=== PATIENT | female | born 1935 | race Caucasian/White ===

== ENCOUNTER 2023-11-15 01:31 | Inpatient (IN) | payer MEDICARE, OTHER ==
[2023-11-15 02:08] LABS: Basophils % (A) 0 %; Eosinophils # (A) 0.1 k/uL (0-0.7); Eosinophils % (A) 1 %; HCT 27.4 % (34.0-46.0); HGB 8.6 gm/dL (11.4-16.0); Lymphocytes # (A) 2.4 k/uL (1.0-4.8); Lymphocytes % (A) 20 %; MCH 28.5 pg (25.0-35.0); MCHC 31.3 g/dL (31.0-37.0); MCV 91.2 fL (80.0-100.0); Mean Platelet Volume 7.8; Monocytes # (A) 0.9 k/uL (0-1.0); Monocytes % (A) 8 %; Neutrophils # (A) 8.4 k/uL (1.3-7.7); Neutrophils % (A) 69 %; Platelet Count 293 k/uL (150-450); RBC 3.01 m/uL (3.80-5.40); RDW 14.1 % (11.5-15.5)
[2023-11-15 02:20] LABS: ALT 14 U/L (4-34); AST 26 U/L (14-36); African American GFR (CKD) 30 (>60 ml/min/1.73 sqM); Albumin 2.4 g/dL (3.5-5.0); Alkaline Phosphatase 91 U/L (38-126); Anion Gap 7 mmol/L; Blood Urea Nitrogen 32 mg/dL (7-17); Calcium 10.8 mg/dL (8.4-10.2); Carbon Dioxide 23 mmol/L (22-30); Chloride 104 mmol/L (98-107); Glucose 92 mg/dL (74-99); Non-African American GFR(CKD) 26 (>60 ml/min/1.73 sqM); Potassium 3.2 mmol/L (3.5-5.1); Sodium 134 mmol/L (137-145); Total Bilirubin 0.2 mg/dL (0.2-1.3); Total Protein 4.6 g/dL (6.3-8.2)
[2023-11-15 02:21] LABS: Partial Thromboplastin Time 23.7 sec (22.0-30.0); Prothrombin Time 11.4 sec (10.0-12.5)
--- NOTE | 2023-11-15 03:01 | ED ---
Female Urogenital HPI - General Source: EMS Mode of arrival: EMS Limitations: physical limitation <Herman Stewart - Last Filed: 11/15/23 03:54> <Karen Jha - Last Filed: 11/15/23 06:57> - General Chief complaint: Vaginal Bleeding Stated complaint: vaginal bleeding Time Seen by Provider: 11/15/23 01:51 - History of Present Illness Initial comments: 88-year-old female with past medical history significant multiple myeloma Presenting to the ED with a chief complaints of rectal bleeding. Also some associated abdominal pain onset today. Patient recently discharged from [facility] after having left hip surgery. Patient is on a blood thinner with history of A-fib. Patient has been unsure if she has had any changes in bowel habits however denies changes in urinary habits. No chest pain or shortness of breath. Of note history limited as patient is a vague historian. (Herman Stewart) - Related Data Allergies Allergy/AdvReac Type Severity Reaction Status Date / Time Penicillins Allergy Unknown Verified 11/15/23 01:34 Childhood Review of Systems ROS Other: All systems not noted in ROS Statement are negative. <Herman Stewart - Last Filed: 11/15/23 03:54> ROS Other: All systems not noted in ROS Statement are negative. <Karen Jha - Last Filed: 11/15/23 06:57> ROS Statement: Those systems with pertinent positive or pertinent negative responses have been documented in the HPI. Past Medical History Past Medical History: Atrial Fibrillation, Coronary Artery Disease (CAD), Cancer, Hyperlipidemia, Hypertension, Osteoarthritis (OA), Renal Disease Additional Past Medical History / Comment(s): multiple myeloma remission, chron ic back pain History of Any Multi-Drug Resistant Organisms: None Reported Past Surgical History: Orthopedic Surgery Past Psychological History: No Psychological Hx Reported Smoking Status: Never smoker Past Alcohol Use History: None Reported Past Drug Use History: None Reported <Herman Stewart - Last Filed: 11/15/23 03:54> General Exam Limitations: physical limitation General appearance: alert Eye exam: Present: normal appearance Neck exam: Present: normal inspection Respiratory exam: Present: normal lung sounds bilaterally Cardiovascular Exam: Present: regular rate GI/Abdominal exam: Present: soft (Diffuse abdominal tenderness to palpation. No rebound guarding or rigidity.) Rectal exam: Present: other (Exam chaperoned by Marylu Rn. Does have a nonthrombosed external hemorrhoid.) External exam: Present: other (Exam chaperoned by Marylu RN. No active vaginal bleeding.) Neurological exam: Present: alert, oriented X3 Skin exam: Present: warm, dry <Herman Stewart - Last Filed: 11/15/23 03:54> Course Vital Signs 11/15/23 11/15/23 11/15/23 01:34 01:45 03:50 Temperature 98.4 F Pulse Rate 58 L 64 63 Respiratory 18 18 15 Rate Blood Pressure 131/70 128/75 131/67 O2 Sat by Pulse 98 97 98 Oximetry 11/15/23 11/15/23 05:02 06:01 Temperature 98.4 F 97.7 F Pulse Rate 56 L 63 Respiratory 15 17 Rate Blood Pressure 129/70 109/65 O2 Sat by Pulse 98 98 Oximetry Medical Decision Making - Lab Data Result diagrams: 11/15/23 01:38 11/15/23 01:38 <Herman Stewart - Last Filed: 11/15/23 03:54> - Lab Data Result diagrams: 11/15/23 01:38 11/15/23 01:38 <Karen Jha - Last Filed: 11/15/23 06:57> - Medical Decision Making Was pt. sent in by a medical professional or institution ([facility], [facility], urgent care, hospital, or penitentiary...) When possible be specific @ -No Did you speak to anyone other than the patient for history (EMS, parent, family, police, friend...)? What history was obtained from this source @ -No Did you review nursing and triage notes (agree or disagree)? Why? @ -I reviewed and agree with nursing and triage notes Were old charts reviewed (outside hosp., previous admission, EMS record, old EKG, old radiological studies, urgent care reports/EKG's, penitentiary records)? Report findings @ -Reviewed patient's paperwork showing history of multiple myeloma. Differential Diagnosis (chest pain, altered mental status, abdominal pain women, abdominal pain men, vaginal bleeding, weakness, fever, dyspnea, syncope, headache, dizziness, GI bleed, back pain, seizure, CVA, palpatations, mental health, musculoskeletal)? @ -Differential Abdominal Pain Women: Appendicitis, Cholecystitis, diverticulosis, ischemic bowel, pancreatitis, hepatitis, UTI, gastroenteritis, AAA, incarcerated hernia, bowel obstruction, constipation, inflammatory bowel, hepatitis, peptic ulcer disease, splenic infarction, perforated viscus, vulvitis, ovarian torsion, PID, kidney stone, placenta abruption, this is not meant to be an all-inclusive list EKG interpreted by me (3pts min.). @ -As above X-rays interpreted by me (1pt min.). @ -None done CT interpreted by me (1pt min.). @ -Pending at this time U/S interpreted by me (1pt. min.). @ -None done What testing was considered but not performed or refused? (CT, X-rays, U/S, labs)? Why? @ -None What meds were considered but not given or refused? Why? @ -None Did you discuss the management of the patient with other professionals (professionals i.e. , PA, [facility], lab, RT, psych nurse, social work professor, hvac technician, teacher, aeronautical engineering officer, case picker)? Give summary @ -No Was smoking cessation discussed for >3mins.? @ -No Was critical care preformed (if so, how long)? @ -No Were there social determinants of health that impacted care today? How? (Homelessness, low income, unemployed, alcoholism, drug addiction, transportation, low edu. Level, literacy, decrease access to med. care, snf, rehab)? @ -No Was there de-escalation of care discussed even if they declined (Discuss DNR or withdrawal of care, Hospice)? DNR status @ -No What co-morbidities impacted this encounter? (DM, HTN, Smoking, COPD, CAD, Cancer, CVA, ARF, Chemo, Hep., AIDS, mental health diagnosis, sleep apnea, morbid obesity)? @ -None Was patient admitted / discharged? Hospital course, mention meds given and route, prescriptions, significant lab abnormalities, going to OR and other perti nent info. @ -Pending 88-year-old female presents to the ED with complaints of abdominal pain and rectal bleeding onset today. Laboratory studies reviewed. CBC did show an elevated white blood cell count of 12, hemoglobin low at 8.6, no prior for comparison, elevated neutrophils at 8.4, chemistry panel significant for an elevated BUN at 32 and creatinine at 1.76, occult stool positive. At this time, CT abdomen pelvis is pending. Case signed out to my attending physician, Dr. Jha, for further disposition. (Herman Stewart) Was patient admitted / discharged? Hospital course, mention meds given and route, prescriptions, significant lab abnormalities, going to OR and other pertinent info. @ -Admit Patient care was signed out to me pending CT results. Patient had some leukocytosis and anemia as well as elevated BUN and creatinine uncertain what patient's baseline labs are but in the setting of GI bleed we are concerned about the anemia. Patient passed a few small clots in her brief here in the ER no significant active bleeding. No hematochezia. CT scan with no acute findings, patient will be admitted for GI evaluation. Patient care was discussed with Arlen from [facility] hospitalist group who accepts admission on behalf of Dr. Johnson. Undiagnosed new problem with uncertain prognosis? @ -Yes Drug Therapy requiring intensive monitoring for toxicity (Heparin, Nitro, Insulin, Cardizem)? @ -No Were any procedures done? @ -Pelvic exam, rectal exam Diagnosis/symptom? @ -Lower GI bleeding, Acute, or Chronic, or Acute on Chronic? @ -Acute Uncomplicated (without systemic symptoms) or Complicated (systemic symptoms)? @ -Default Side effects of treatment? @ -No Exacerbation, Progression, or Severe Exacerbation? @ -No Poses a threat to life or bodily function? How? (Chest pain, [place], [place], pneumonia, PE, COPD, DKA, ARF, appy, cholecystitis, CVA, Diverticulitis, Homicidal, Suicidal, threat to staff... and all critical care pts) @ -Potentially yes can lead to hemorrhage and hemorrhagic shock and (Karen Jha) - Lab Data Lab Results 11/15/23 11/15/23 11/15/23 Range/Units 01:33 01:38 01:38 WBC 12.0 H (3.8-10.6) k/uL RBC 3.01 L (3.80-5.40) m/uL Hgb 8.6 L (11.4-16.0) gm/dL Hct 27.4 L (34.0-46.0) % MCV 91.2 (80.0-100.0) fL MCH 28.5 (25.0-35.0) pg MCHC 31.3 (31.0-37.0) g/dL RDW 14.1 (11.5-15.5) % Plt Count 293 (150-450) k/uL MPV 7.8 Neutrophils % 69 % Lymphocytes % 20 % Monocytes % 8 % Eosinophils % 1 % Basophils % 0 % Neutrophils # 8.4 H (1.3-7.7) k/uL Lymphocytes # 2.4 (1.0-4.8) k/uL Monocytes # 0.9 (0-1.0) k/uL Eosinophils # 0.1 (0-0.7) k/uL Basophils # 0.0 (0-0.2) k/uL PT (10.0-12.5) sec INR (<1.2) APTT (22.0-30.0) sec Sodium 134 L (137-145) mmol/L Potassium 3.2 L (3.5-5.1) mmol/L Chloride 104 (98-107) mmol/L Carbon Dioxide 23 (22-30) mmol/L Anion Gap 7 mmol/L BUN 32 H (7-17) mg/dL Creatinine 1.76 H (0.52-1.04) mg/dL Est GFR (CKD-EPI)AfAm 30 (>60 ml/min/1.73 sqM) Est GFR (CKD-EPI)NonAf 26 (>60 ml/min/1.73 sqM) Glucose 92 (74-99) mg/dL Calcium 10.8 H (8.4-10.2) mg/dL Total Bilirubin 0.2 (0.2-1.3) mg/dL AST 26 (14-36) U/L ALT 14 (4-34) U/L Alkaline Phosphatase 91 (38-126) U/L Total Protein 4.6 L (6.3-8.2) g/dL Albumin 2.4 L (3.5-5.0) g/dL Stool Occult Blood (Negative) Blood Type Blood Type Confirm O Positive Blood Type Recheck Bld Type Recheck Status Antibody Screen Spec Expiration Date 11/15/23 11/15/23 11/15/23 Range/Units 01:38 01:38 03:00 WBC (3.8-10.6) k/uL RBC (3.80-5.40) m/uL Hgb (11.4-16.0) gm/dL Hct (34.0-46.0) % MCV (80.0-100.0) fL MCH (25.0-35.0) pg MCHC (31.0-37.0) g/dL RDW (11.5-15.5) % Plt Count (150-450) k/uL MPV Neutrophils % % Lymphocytes % % Monocytes % % Eosinophils % % Basophils % % Neutrophils # (1.3-7.7) k/uL Lymphocytes # (1.0-4.8) k/uL Monocytes # (0-1.0) k/uL Eosinophils # (0-0.7) k/uL Basophils # (0-0.2) k/uL PT 11.4 (10.0-12.5) sec INR 1.0 (<1.2) APTT 23.7 (22.0-30.0) sec Sodium (137-145) mmol/L Potassium (3.5-5.1) mmol/L Chloride (98-107) mmol/L Carbon Dioxide (22-30) mmol/L Anion Gap mmol/L BUN (7-17) mg/dL Creatinine (0.52-1.04) mg/dL Est GFR (CKD-EPI)AfAm (>60 ml/min/1.73 sqM) Est GFR (CKD-EPI)NonAf (>60 ml/min/1.73 sqM) Glucose (74-99) mg/dL Calcium (8.4-10.2) mg/dL Total Bilirubin (0.2-1.3) mg/dL AST (14-36) U/L ALT (4-34) U/L Alkaline Phosphatase (38-126) U/L Total Protein (6.3-8.2) g/dL Albumin (3.5-5.0) g/dL Stool Occult Blood Positive H (Negative) Blood Type O Positive Blood Type Confirm Blood Type Recheck No Previous Record Bld Type Recheck Status CABO Indicated Antibody Screen NEGATIVE Spec Expiration Date 11/18/2023 - 2337 Disposition <Herman Stewart - Last Filed: 11/15/23 03:54> Is patient prescribed a controlled substance at d/c from ED?: No <Karen Jha P - Last Filed: 11/15/23 06:57> Clinical Impression: Lower GI bleed Disposition: ADMITTED IP TO THIS HOSP Condition: Stable
[2023-11-15] MEDS: ACETAMINOPHEN TAB 500 MG TAB PO STA (03:42)
[2023-11-15] MEDS: SODIUM CHLORIDE 0.9% 1,000 ML IV STA (03:43)
[2023-11-15] MEDS: MORPHINE SULFATE 4 MG/ML SYRINGE IVP STA (04:57)
--- NOTE | 2023-11-15 05:54 | CT ---
EXAMINATION TYPE: CT abdomen pelvis wo con DATE OF EXAM: 11/15/2023 HISTORY: Pt presents with vaginal bleeding. PT was discharged this afternoon from [facility] for a left hip replacement. best possible. pt unable to lay flat due to sores on back and recent hip surge ry. CT DLP: 440.6 mGycm. Automated Exposure Control for Dose Reduction was Utilized. TECHNIQUE: CT scan of the abdomen and pelvis is performed without oral or IV contrast. COMPARISON: NONE FINDINGS: Within the limitations of a non-contrast study, the following observations are made. Subop timal study due to patient rotation and inability to lie flat due to recent hip surgery and sores on back. Suboptimal study due to artifact from overlying upper extremities LUNG BASES: Trace bilateral pleural effusions. A few tiny calcified nodules or benign granulomas righ t lung base axial image 1. Coronary artery calcification is present. LIVER/GB: No significant abnormality is appreciated. PANCREAS: No significant abnormality is seen. SPLEEN: There is 4.4 cm round calcified lesion in the inferior spleen axial image 29. Lesion of uncer tain etiology but favored benign ADRENALS: No significant abnormality is seen. KIDNEYS: Cortical thinning in both kidneys with several cysts of varying size and density bilaterally . Findings presumed product of chronic medical renal disease. No hydronephrosis noted bilaterally. BOWEL: Scattered colonic diverticula greatest distally. No convincing evidence for acute diverticulit is. No abnormal small or large bowel dilatation. GENITAL ORGANS: Anteverted uterus. Scattered small bilateral pelvic phleboliths. No free fluid. LYMPH NODES: No greater than 1cm abdominal or pelvic lymph nodes are appreciated. OSSEOUS STRUCTURES: Surgical change to left femur is partially imaged causing streak artifact somewha t limiting evaluation of pelvic structures. There is partial destruction and adjacent muscular thicke saravanan at the level of the ischial tuberosity. Osseous structures are demineralized. Advanced degenerat oralia change in the right hip is present. Scoliosis with multilevel disc space narrowing and spurring i n the mid to lower lumbar spine is seen. There is multilevel facet arthropathy. OTHER: [id number] ill-defined fluid and fat stranding greatest over the right abdomen and pelvi s likely positional edema. IMPRESSION: 1. Colonic diverticulosis greatest distally without convincing CT evidence for acute diverticulitis. No bowel obstruction. 2. Postsurgical change to the left femur is seen. Some erosive change at level of the ischial tuberos ity with abnormal heterogeneous thickening could reflect age-indeterminate infectious process or oste omyelitis in appropriate clinical setting, correlate clinically.
[2023-11-15] MEDS ORDERED: NALOXONE 0.4 MG/ML 1 ML VIAL IV PRN (06:44)
[2023-11-15 09:25] LABS: HCT 23.2 % (34.0-46.0); HGB 7.3 gm/dL (11.4-16.0); Hypochromasia Slight; MCHC 31.5 g/dL (31.0-37.0); MCV 92.1 fL (80.0-100.0); Mean Platelet Volume 7.7; Platelet Count 261 k/uL (150-450); RBC 2.52 m/uL (3.80-5.40); RDW 14.2 % (11.5-15.5); WBC 10.6 k/uL (3.8-10.6)
[2023-11-15 09:31] LABS: Potassium 3.1 mmol/L (3.5-5.1)
[2023-11-15 09:32] LABS: African American GFR (CKD) 30 (>60 ml/min/1.73 sqM); Anion Gap 3 mmol/L; Blood Urea Nitrogen 31 mg/dL (7-17); Calcium 10.4 mg/dL (8.4-10.2); Carbon Dioxide 26 mmol/L (22-30); Chloride 104 mmol/L (98-107); Glucose 81 mg/dL (74-99); Non-African American GFR(CKD) 26 (>60 ml/min/1.73 sqM); Sodium 133 mmol/L (137-145)
[2023-11-15] MEDS ORDERED: Potassium Replacement Protocol 1 EACH MISC MISCELLANE PRN (10:15)
[2023-11-15] MEDS: LEVOFLOXACIN 500MG-D5W PMX 500 MG in DEXTROSE/WATER 1 100ML.BAG IVPB ONE (10:28)
[2023-11-15] MEDS: POTASSIUM CHLORIDE 10 MEQ in WATER FOR INJECTION 1 100ML.BAG IVPB SCH (11:22)
[2023-11-15] MEDS: SODIUM CHLORIDE 0.9% 1,000 ML IV SCH (11:23)
--- NOTE | 2023-11-15 13:24 | P.CONS ---
History of Present Illness - Reason for Consult Consult date: 11/15/23 GI bleed Requesting physician: Karen Jha - Chief Complaint Lower GI bleed - History of Present Illness This is a pleasant 88-year-old female who was brought into the emergency department early this morning. She has a past medical history of atrial fibrillation on Eliquis, coronary artery disease hyperlipidemia, hypertension, chronic renal disease and multiple myeloma. Apparently patient had been at [facility] and underwent surgery for a fractured femur and then was discharged to [facility] but was sent back for urinary tract infection. She was treated for urinary tract infection for about 3 days at [facility] and then discharged to [facility] [place] the [place]. Patient also has a history of recent diagnosis of multiple myeloma in April 2023. She has had multiple fractures according to her daughter since that time. Apparently after her surgery she had quite a bit of constipation while she was at [facility] she had to have manual disimpaction according to her daughter. The daughter states that she was called this morning and said that patient was noted to have a bloody bowel movement and was sent into the emergency department. Patient currently states that she is having abdominal pain. She is unsure if she had blood in her stool. She denies any nausea or vomiting right now. She had a CT of the abdomen pelvis with findings of diverticulosis without any evidence of diverticulitis. Patient is afebrile. She was noted to have leukocytosis on admission. Admitting labs WBC 12.0 hemoglobin 8.6 hematocrit 27 platelet count 293,000 INR 1.0 sodium 134 potassium 3.2 BUN 32 creatinine 1.7 total bilirubin 0.2 AST 26 ALT 14 alkaline phosphatase 91 stool occult blood positive Review of Systems REVIEW OF SYSTEMS: CARDIOPULMONARY: No chest pain or shortness of breath. Gastrointestinal: Left lower quadrant abdominal pain. No nausea or vomiting. No hematemesis, coffee-ground emesis. Patient reports unsure if she had any rectal bleeding or bloody bowel movements. GENITOURINARY: No dysuria or hematuria. MUSCULOSKELETAL: Reports normal range of motion., Joint pain. SKIN: No rashes. No jaundice. ENDOCRINE: No chills, fevers. No excessive weight gain or loss. No polydipsia or polyuria. PSYCHIATRIC: Unremarkable. NEUROLOGY: No change in mental status. Denies dizziness, headache. ENT: Vision unremarkable. CONSTITUTIONAL: No recent weight loss. No fever, chills, night sweats. Past Medical History Past Medical History: Atrial Fibrillation, Coronary Artery Disease (CAD), Cancer, Hyperlipidemia, Hypertension, Osteoarthritis (OA), Renal Disease Additional Past Medical History / Comment(s): multiple myeloma remission, chronic back pain History of Any Multi-Drug Resistant Organisms: None Reported Past Surgical History: Orthopedic Surgery Past Psychological History: No Psychological Hx Reported Smoking Status: Never smoker Past Alcohol Use History: None Reported Past Drug Use History: None Reported Medications and Allergies Home Medications Medication Instructions Recorded Confirmed Type Acetaminophen Tab [Tylenol Tab] 500 mg PO Q6H PRN 11/15/23 11/15/23 History Apixaban [Eliquis] 2.5 mg PO BID@0900,1700 11/15/23 11/15/23 History Cholecalciferol [Vitamin D3 (25 25 mcg PO DAILY 11/15/23 11/15/23 History Mcg = 1000 Iu)] Diclofenac Sodium Gel [Voltaren 1% 4 gm TOPICAL Q6H PRN 11/15/23 11/15/23 History Gel] Ezetimibe [Zetia] 10 mg PO HS 11/15/23 11/15/23 History Furosemide [Lasix] 40 mg PO DAILY 11/15/23 11/15/23 History HYDROcodone/APAP 10-325MG [Graford 1 tab PO Q8H PRN 11/15/23 11/15/23 History 10-325] Lidocaine 2% Gel 1 applic TOPICAL Q6H PRN 11/15/23 11/15/23 History Summers-3/Dha/Epa/Fish Oil [Fish Oil 1 cap PO DAILY 11/15/23 11/15/23 History 1,000 mg Softgel] cloNIDine 0.1 MG/24HR PATCH 1 patch TRANSDERM FR 11/15/23 11/15/23 History [Catapres-TTS] hydrALAZINE HCL [Apresoline] 25 mg PO BID 11/15/23 11/15/23 History Allergies Allergy/AdvReac Type Severity Reaction Status Date / Time doxazosin Allergy Unknown Verified 11/15/23 08:59 Penicillins Allergy Unknown Verified 11/15/23 08:59 Childhood Physical Exam Vitals: Vital Signs Temp Pulse Resp BP Pulse Ox 11/15/23 12:35 58 L 18 103/55 97 11/15/23 10:34 60 18 103/82 96 11/15/23 08:13 55 L 18 96/53 97 11/15/23 06:56 67 14 109/67 98 11/15/23 06:01 97.7 F 63 17 109/65 98 11/15/23 05:02 98.4 F 56 L 15 129/70 98 11/15/23 03:50 63 15 131/67 98 11/15/23 01:45 64 18 128/75 97 11/15/23 01:34 98.4 F 58 L 18 131/70 98 Intake and Output 11/14/23 11/15/23 11/15/23 22:59 06:59 14:59 Other: Weight 61.008 kg General appearance: The patient is alert, oriented, appears in no acute distress. HET: Head is normocephalic and atraumatic. Conjunctiva pink. Sclera anicteric. Neck: Supple without lymphadenopathy. Trachea midline. Heart: Regular. Lungs: Equal expansion, normal respiratory effort. Abdomen: Soft, left lower quadrant tenderness, nondistended. Skin: No rashes. No jaundice. Extremities: Normal skin color and turgor. No pedal edema. Neurological: No focal deficits. Alert and oriented x3. Results CBC & Chem 7: 11/15/23 08:53 11/15/23 08:53 Labs: Abnormal Lab Results - Last 24 Hours (Table) 11/15/23 11/15/23 11/15/23 Range/Units 01:38 01:38 03:00 WBC 12.0 H (3.8-10.6) k/uL RBC 3.01 L (3.80-5.40) m/uL Hgb 8.6 L (11.4-16.0) gm/dL Hct 27.4 L (34.0-46.0) % Neutrophils # 8.4 H (1.3-7.7) k/uL Sodium 134 L (137-145) mmol/L Potassium 3.2 L (3.5-5.1) mmol/L BUN 32 H (7-17) mg/dL Creatinine 1.76 H (0.52-1.04) mg/dL Calcium 10.8 H (8.4-10.2) mg/dL Total Protein 4.6 L (6.3-8.2) g/dL Albumin 2.4 L (3.5-5.0) g/dL Stool Occult Blood Positive H (Negative) 11/15/23 11/15/23 Range/Units 08:53 08:53 WBC (3.8-10.6) k/uL RBC 2.52 L (3.80-5.40) m/uL Hgb 7.3 L (11.4-16.0) gm/dL Hct 23.2 L (34.0-46.0) % Neutrophils # (1.3-7.7) k/uL Sodium 133 L (137-145) mmol/L Potassium 3.1 L (3.5-5.1) mmol/L BUN 31 H (7-17) mg/dL Creatinine 1.77 H (0.52-1.04) mg/dL Calcium 10.4 H (8.4-10.2) mg/dL Total Protein (6.3-8.2) g/dL Albumin (3.5-5.0) g/dL Stool Occult Blood (Negative) Comments: CT abdomen pelvis without contrast reports colonic diverticulosis greatest distally without convincing CT evidence for acute diverticulitis. No bowel obstruction. Postsurgical change to the left femur is seen. Some erosive change at level of ischial tuberosity with abnormal heterogeneous thickening could reflect age indeterminate infectious process or osteomyelitis in appropriate clinical setting. Correlate clinically. Assessment and Plan (1) Abdominal pain Narrative/Plan: 88-year-old female presenting to the emergency department with abdominal pain and reported bloody bowel movement from [facility]. This in a patient with diagnosis of multiple myeloma in April 2023, atrial fibrillation on Eliquis and who had recent hospitalization for a fractured femur with surgical repair at [facility] who was then discharged to [facility] for rehab and readmitted to [facility] for urinary tract infection and was just discharged yesterday. Patient was then sent to [facility] to continue rehab. Apparently patient had some abdominal pain had a bowel movement and staff noted that she had blood in her brief. According to the patient she did have some constipation during her hospitalization when she had her fracture repair the daughter stated that they had to manually disimpact her and she has been taking Graford. Apparently she was having then some diarrhea over the last couple days could be secondary to antibiotics for urinary tract infection. She does take Eliquis 2.5 mg for atrial fibrillation. Unclear etiology of abdominal pain and rectal bleeding. CT shows no evidence of colitis reports di verticulosis without diverticulitis but patient presenting more with clinical picture of infectious colitis in the setting of leukocytosis. Will start IV antibiotics. Recommend C. difficile stool studies. Keep on clear liquid diet and continue to monitor. Current Visit: Yes Status: Acute Code(s): R10.9 - UNSPECIFIED ABDOMINAL PAIN SNOMED Code(s): 65609790 (2) GI bleed Current Visit: Yes Status: Acute Code(s): K92.2 - GASTROINTESTINAL HEMORRHAGE, UNSPECIFIED SNOMED Code(s): 27459063 Plan: 1. Continue symptomatic and supportive care 2. Daily CBC, transfuse for hemoglobin less than 7 3. Please collect stool for C. difficile 4. Patient may have clear liquid diet 5. Start IV Levaquin and Flagyl 6. No plans on colonoscopy at this time 7. Further recommendations forthcoming based on clinical course Thank you for this consultation, we will continue to follow. Dr. Imer Nunez I agree with the dictator's note, documented as a scribe by Sylvie Velásquez.
[2023-11-15] MEDS: metroNIDAZOLE-NS PMX 500 MG in SALINE 1 100ML.BAG IVPB SCH (17:03)
[2023-11-15 17:30] LABS: % Iron Saturation 19.48 (12.00-45.00); Iron 30 UG/DL (50-170); Total Iron Binding Capacity 154 UG/DL (228-460)
[2023-11-15] MEDS: EZETIMIBE 10 MG TAB PO SCH (20:38)
[2023-11-15] MEDS: DICLOFENAC SODIUM GEL 100 GM TUBE TOPICAL PRN (22:53)
[2023-11-16] MEDS ORDERED: SENNOSIDES 8.6 MG TAB PO PRN (00:23)
--- NOTE | 2023-11-16 00:26 | P.HPIM ---
History of Present Illness H&P Date: 11/15/23 Chief Complaint: Blood in the stool Patient is a 88-year-old female with past medical history of hypertension, hyperlipidemia, atrial fibrillation on anticoagulation with Eliquis, osteoarthritis, CKD and multiple myeloma recently diagnosed in April 2023 presents to ER with complaints of due to complaints of bloody bowel movement from rehab. [facility] staff found blood in her brief. Patient was at recently underwent surgery for fractured femur and then was discharged to [facility] but was sent back for urinary tract infection. She was treated for urinary tract infection for 3 days at [facility] and discharged to [facility] on the [place] yesterday. Patient had issues with constipation while she was at hospital and did not have any bowel meant for 10 days. She was given MiraLAX and multiple stool softeners and finally had bowel movement. Patient had to have manual disimpaction as per daughter. She was called this morning with the patient had a bloody bowel movement and was sent to ER. Patient is also having abdominal pain mainly in the left lower quadrant. Denies any nausea or vomiting. No fever no chills. No cough or sputum production. No chest pain or shortness of breath. Laboratory data showed WBC 12.0 hemoglobin 8.6 and platelets 293 Sodium 134 potassium 3.2 chloride 104 bicarb is 23 BUN 32 and creatinine 1.76 and blood sugar 92 and calcium 10.8 Liver enzymes are not elevated albumin 2.[address] of the abdomen pelvis showed colonic diverticulosis greatest distally without convincing CT evidence for acute diverticulitis. No bowel obstruction. Postsurgical changes to the left femur seen. Some erosive changes at the level of the ischial tuberosity with abnormal heterogenous thickening could reflect age-indeterminate infectious process or osteomyelitis in the appropriate clinical setting correlate clinically. Review of Systems Constitutional: Patient denies any fever or chills . No generalized weakness or weight loss. Abdomen: Patient denied nausea vomiting. Patient does have constipation. Positive for abdominal pain. Cardiovascular: Patient denies any chest pain or short of breath no palpitations. Respiratory: patient denied any cough is from production. No shortness of breath Neurologic: Patient denied any numbness or tingling headache. Musculoskeletal: Patient denies any complaints of joint swelling or deformity. Skin: Negative Psychiatric: Negative Endocrine: No heat or cold intolerance. No recent weight gain. Genitourinary: No dysuria or hematuria. All other 14 point ROS negative except the above Past Medical History Past Medical History: Atrial Fibrillation, Coronary Artery Disease (CAD), Cance r, Hyperlipidemia, Hypertension, Osteoarthritis (OA), Renal Disease Additional Past Medical History / Comment(s): multiple myeloma remission, chronic back pain History of Any Multi-Drug Resistant Organisms: None Reported Past Surgical History: Orthopedic Surgery Past Psychological History: No Psychological Hx Reported Smoking Status: Never smoker Past Alcohol Use History: None Reported Past Drug Use History: None Reported - Past Family History Mother Family Medical History: Cancer, Hypertension Father Family Medical History: Hypertension Brother(s) Family Medical History: Cancer, Diabetes Mellitus, Liver Disease Medications and Allergies Home Medications Medication Instructions Recorded Confirmed Type Acetaminophen Tab [Tylenol Tab] 500 mg PO Q6H PRN 11/15/23 11/15/23 History Apixaban [Eliquis] 2.5 mg PO BID@0900,1700 11/15/23 11/15/23 History Cholecalciferol [Vitamin D3 (25 25 mcg PO DAILY 11/15/23 11/15/23 History Mcg = 1000 Iu)] Diclofenac Sodium Gel [Voltaren 1% 4 gm TOPICAL Q6H PRN 11/15/23 11/15/23 History Gel] Ezetimibe [Zetia] 10 mg PO HS 11/15/23 11/15/23 History Furosemide [Lasix] 40 mg PO DAILY 11/15/23 11/15/23 History HYDROcodone/APAP 10-325MG [[place] 1 tab PO Q8H PRN 11/15/23 11/15/23 History 10-325] Lidocaine 2% Gel 1 applic TOPICAL Q6H PRN 11/15/23 11/15/23 History [place]-3/Dha/Epa/Fish Oil [Fish Oil 1 cap PO DAILY 11/15/23 11/15/23 History 1,000 mg Softgel] cloNIDine 0.1 MG/24HR PATCH 1 patch TRANSDERM FR 11/15/23 11/15/23 History [Catapres-TTS] hydrALAZINE HCL [Apresoline] 25 mg PO BID 11/15/23 11/15/23 History Allergies Allergy/AdvReac Type Severity Reaction Status Date / Time doxazosin Allergy Unknown Verified 11/15/23 08:59 Penicillins Allergy Unknown Verified 11/15/23 08:59 Childhood Physical Exam Vitals: Vital Signs Temp Pulse Resp BP Pulse Ox 11/15/23 10:34 60 18 103/82 96 11/15/23 08:13 55 L 18 96/53 97 11/15/23 06:56 67 14 109/67 98 11/15/23 06:01 97.7 F 63 17 109/65 98 11/15/23 05:02 98.4 F 56 L 15 129/70 98 11/15/23 03:50 63 15 131/67 98 11/15/23 01:45 64 18 128/75 97 11/15/23 01:34 98.4 F 58 L 18 131/70 98 Intake and Output 11/14/23 11/15/23 11/15/23 22:59 06:59 14:59 Other: Weight 61.008 kg PHYSICAL EXAMINATION: Patient is lying in the bed comfortably, no acute distress, awake alert and oriented.. HEENT: Normocephalic. Neck is supple. Pupils reactive. Nostrils clear. Oral cavity is moist. Neck reveals no JVD, carotid bruits, or thyromegaly. CHEST EXAMINATION: Trachea is central. Symmetrical expansion. Lung law clear to auscultation and percussion. CARDIAC: Normal S1, S2 with no gallops. No murmurs ABDOMEN: Soft. Bowel sounds present. Left lower quadrant tenderness. No guarding or rigidity. No organomegaly. No abdominal bruits. Extremities: reveal no edema. No clubbing or cyanosis Neurologically awake, alert, oriented x 2-3 with well-coordinated movements. No gross focal deficits noted Skin: No rash or skin lesions. Psychiatric: Coperative. Nonsuicidal Musculoskeletal: No joint swelling or deformity. Normal range of motion. Results CBC & Chem 7: 11/15/23 08:53 11/15/23 08:53 Labs: Abnormal Lab Results - Last 24 Hours (Table) 11/15/23 11/15/23 11/15/23 Range/Units 01:38 01:38 03:00 WBC 12.0 H (3.8-10.6) k/uL RBC 3.01 L (3.80-5.40) m/uL Hgb 8.6 L (11.4-16.0) gm/dL Hct 27.4 L (34.0-46.0) % Neutrophils # 8.4 H (1.3-7.7) k/uL Sodium 134 L (137-145) mmol/L Potassium 3.2 L (3.5-5.1) mmol/L BUN 32 H (7-17) mg/dL Creatinine 1.76 H (0.52-1.04) mg/dL Calcium 10.8 H (8.4-10.2) mg/dL Total Protein 4.6 L (6.3-8.2) g/dL Albumin 2.4 L (3.5-5.0) g/dL Stool Occult Blood Positive H (Negative) 11/15/23 11/15/23 Range/Units 08:53 08:53 WBC (3.8-10.6) k/uL RBC 2.52 L (3.80-5.40) m/uL Hgb 7.3 L (11.4-16.0) gm/dL Hct 23.2 L (34.0-46.0) % Neutrophils # (1.3-7.7) k/uL Sodium 133 L (137-145) mmol/L Potassium 3.1 L (3.5-5.1) mmol/L BUN 31 H (7-17) mg/dL Creatinine 1.77 H (0.52-1.04) mg/dL Calcium 10.4 H (8.4-10.2) mg/dL Total Protein (6.3-8.2) g/dL Albumin (3.5-5.0) g/dL Stool Occult Blood (Negative) Thrombosis Risk Factor Assmnt - DVT/VTE Prophylaxis DVT/VTE Prophylaxis: Mechanical Prophylaxis ordered Assessment and Plan Assessment: Abdominal pain with possible infectious colitis. Patient was noted to have blood in her brief. CT showed evidence of diverticulosis without diverticulitis. Recent admission at due to left femur fracture status postsurgical repair Recently treated urinary tract infection and severe constipation requiring manual disimpaction at . Multiple myeloma diagnosed in April 2023 Paroxysmal atrial fibrillation on anticoagulation with Eliquis Hypertension Hyperlipidemia Osteoarthritis Chronic kidney disease stage III Hypokalemia replace it. Mild to moderate protein calorie malnutrition DVT prophylaxis with SCDs. Plan: Patient will be continued on IV hydration with normal saline. Due to leukocytosis and abdominal pain, suspected infectious colitis. Patient was sta rted on Levaquin and Flagyl as per GI recommendations. Continue with pain management and bowel regimen. Eliquis is on hold currently. Continue other home medications and follow-up closely. Stool for C. difficile toxin was ordered. Discussed with the patient and her daughter at bedside in detail. Follow-up closely. Time with Patient: Greater than 30
[2023-11-16 08:06] LABS: Basophils % (A) 0 %; Eosinophils # (A) 0.1 k/uL (0-0.7); Eosinophils % (A) 1 %; Hypochromasia Moderate; Lymphocytes # (A) 1.6 k/uL (1.0-4.8); Lymphocytes % (A) 20 %; MCH 29.6 pg (25.0-35.0); MCHC 31.8 g/dL (31.0-37.0); MCV 93.1 fL (80.0-100.0); Mean Platelet Volume 8.4; Monocytes # (A) 0.4 k/uL (0-1.0); Monocytes % (A) 5 %; Neutrophils % (A) 72 %; Platelet Count 213 k/uL (150-450); RBC 2.08 m/uL (3.80-5.40); RDW 14.4 % (11.5-15.5); WBC 8.3 k/uL (3.8-10.6)
[2023-11-16 08:28] LABS: HCT 19.4 % (34.0-46.0); HGB 6.2 gm/dL (11.4-16.0)
[2023-11-16 08:35] LABS: African American GFR (CKD) 31 (>60 ml/min/1.73 sqM); Anion Gap 2 mmol/L; Blood Urea Nitrogen 27 mg/dL (7-17); Calcium 9.8 mg/dL (8.4-10.2); Carbon Dioxide 22 mmol/L (22-30); Chloride 110 mmol/L (98-107); Glucose 75 mg/dL (74-99); Non-African American GFR(CKD) 27 (>60 ml/min/1.73 sqM); Potassium 3.4 mmol/L (3.5-5.1); Sodium 134 mmol/L (137-145)
--- NOTE | 2023-11-16 13:29 | P.PN ---
Subjective Progress Note Date: 11/16/23 Principal diagnosis: Abdominal pain This is a pleasant 88-year-old female who was brought into the emergency department early this morning. She has a past medical history of atrial fibrillation on Eliquis, coronary artery disease hyperlipidemia, hypertension, chronic renal disease and multiple myeloma. Apparently patient had been at [facility] and underwent surgery for a fractured femur and then was discharged to [facility] but was sent back for urinary tract infection. She was treated for urinary tract infection for about [address] [facility] and then discharged to [facility] on the [place] yesterday. Patient also has a history of recent diagnosis of multiple myeloma in April 2023. She has had multiple fractures according to her daughter since that time. Apparently after her surgery she had quite a bit of constipation while she was at [facility] she had to have manual disimpaction according to her daughter. The daughter states that she was called this morning and said that patient was noted to have a bloody bowel movement and was sent into the emergency department. Patient currently states that she is having abdominal pain. She is unsure if she had blood in her stool. She denies any nausea or vomiting right now. She had a CT of the abdomen pelvis with findings of diverticulosis without any evidence of diverticulitis. Patient is afebrile. She was noted to have leukocytosis on admission. Admitting labs WBC 12.0 hemoglobin 8.6 hematocrit 27 platelet count 293,000 INR 1.0 sodium 134 potassium 3.2 BUN 32 creatinine 1.7 total bilirubin 0.2 AST 26 ALT 14 alkaline phosphatase 91 stool occult blood positive 11/16/2023 Patient seen and examined today as a follow-up. States she still having some abdominal pain. No nausea or vomiting. States a lot of hip pain from surgery. She did have a drop in her hemoglobin today to 6.2, iron 30 TIBC 154 ferritin 110. Patient reports that she had a loose bowel movement this morning nonbloody however nursing states that the the did not believe she had a bowel movement. Objective - Vital Signs Vital signs: Vital Signs Temp 98.0 F 11/16/23 03:44 Pulse 58 L 11/16/23 03:44 Resp 18 11/16/23 03:44 BP 132/64 11/16/23 03:44 Pulse Ox 97 11/16/23 03:44 FiO2 Intake & Output 11/15/23 11/16/23 11/16/23 18:59 06:59 18:59 Intake Total 240 Output Total 500 Balance -260 Weight 61.008 kg Intake: Oral 240 Output: Urine 500 Other: Voiding Method External Catheter External Catheter - Exam General appearance: The patient is alert, oriented, appears in no acute distress. HET: Head is normocephalic and atraumatic. Conjunctiva pink. Sclera anicteric. Neck: Supple without lymphadenopathy. Abdomen: Soft, left lower quadrant tenderness, nondistended. Extremities: Normal skin color and turgor. No pedal edema Skin: No rashes, no jaundice Neurological: No focal deficits. Alert and oriented. - Labs CBC & Chem 7: 11/16/23 07:19 11/16/23 07:19 Labs: Abnormal Lab Results - Last 24 Hours (Table) 11/15/23 11/15/23 Range/Units 08:53 08:53 RBC 2.52 L (3.80-5.40) m/uL Hgb 7.3 L (11.4-16.0) gm/dL Hct 23.2 L (34.0-46.0) % Sodium 133 L (137-145) mmol/L Potassium 3.1 L (3.5-5.1) mmol/L BUN 31 H (7-17) mg/dL Creatinine 1.77 H (0.52-1.04) mg/dL Calcium 10.4 H (8.4-10.2) mg/dL Iron 30 L (50-170) UG/DL TIBC 154 L (228-460) UG/DL Transferrin 110.0 L (204.0-354.0) mg/dL Assessment and Plan (1) Abdominal pain Narrative/Plan: 88-year-old female presenting to the emergency department with abdominal pain an d reported bloody bowel movement from [facility]. This in a patient with diagnosis of multiple myeloma in April 2023, atrial fibrillation on Eliquis and who had recent hospitalization for a fractured femur with surgical repair at [facility] who was then discharged to [facility] for rehab and readmitted to [facility] for urinary tract infection and was just discharged yesterday. Patient was then sent to [facility] to continue rehab. Apparently patient had some abdominal pain had a bowel movement and staff noted that she had blood in her brief. According to the patient she did have some constipation during her hospitalization when she had her fracture repair the daughter stated that they had to manually disimpact her and she has been taking [place]. Apparently she was having then some diarrhea over the last couple days could be secondary to antibiotics for urinary tract infection. She does take Eliquis 2.5 mg for atrial fibrillation. Unclear etiology of abdominal pain and rectal bleeding. CT shows no evidence of colitis reports diverticulo sis without diverticulitis but patient presenting more with clinical picture of infectious colitis in the setting of leukocytosis. Will start IV antibiotics. Recommend C. difficile stool studies. Keep on clear liquid diet and continue to monitor. Current Visit: Yes Status: Acute Code(s): R10.9 - UNSPECIFIED ABDOMINAL PAIN SNOMED Code(s): 37270416 (2) GI bleed Narrative/Plan: Patient had large maroon-colored bowel movement this afternoon. 1 unit of blood was ordered this morning for hemoglobin of 6.2. But patient is refusing blood transfusion at this time. No plans on endoscopic evaluation at this time, as likely dealing with infectious or ischemic colitis. Continue with symptomatic treatment with IV antibiotics, clear liquid and blood as needed. Current Visit: Yes Status: Acute Code(s): K92.2 - GASTROINTESTINAL HEMORRHAGE, UNSPECIFIED SNOMED Code(s): 31869970 (3) Multiple myeloma Narrative/Plan: Oncology consulted Current Visit: Yes Status: Acute Code(s): C90.00 - MULTIPLE MYELOMA NOT HAVING ACHIEVED REMISSION SNOMED Code(s): 272394831 (4) Anemia Current Visit: Yes Status: Acute Code(s): D64.9 - ANEMIA, UNSPECIFIED SNOMED Code(s): 423134427 Plan: 1. Continue symptomatic and supportive care 2. Daily CBC, transfuse for hemoglobin less than 7 3. 1 unit PRBC transfusion ordered, patient refusing transfusion 4. Consult to oncology for multiple myeloma, anemia 5. Rectal bleeding likely secondary from colitis. Will continue to monitor. 6. Discussed with patient, nurse and daughter CODE STATUS needs to be addressed as well as continued medical therapy and overall goals of care as patient is refusing care during this hospital stay Thank you for this consultation, we will continue to follow. Dr. Imer Nunez I agree with the dictator's note, documented as a scribe by Sylvie Velásquez.
[2023-11-16 15:45] VITALS: BMI 24.5
--- NOTE | 2023-11-16 16:35 | P.CONS ---
History of Present Illness - Reason for Consult Consult date: 11/16/23 anemia Requesting physician: Sylvie Fernandez - Chief Complaint BRBPR - History of Present Illness Ms. Albright is an 88-year-old female that we have been asked to see for a nemia. She came to the emergency department for complaints of bloody bowel movement. Patient is reporting that she feels like she has something lodged in her rectum. Worked with nursing to evaluate patient, nothing visible protruding from the rectum, she did have some melanotic stool when cleaned up. Patient has a PMH of atrial fibrillation for which she is on anticoagulation with Eliquis, CAD, HTN, hyperlipidemia and chronic renal disease. Patient was recently diagnosed with plasma cell myeloma. She has been in rehabilitation so, she has not started treatment for the same. She has had right femur fracture repair secondary to myeloma. Previously, pt did not have transportation to get to and from appointments, she is moving locally with her daughter so, she would like to start treatment here. Patient is currently denying any other bleeding. Hemoglobin is 6.2, occult was positive. CT of the abdomen pelvis reports diverticulosis without diverticulitis. Gastroenterology has assessed the patient. No plans for endoscopy at this time. Did receive reports from [facility]. They are summarized below. Immunology studies from 05/04/2023 revealed monoclonal protein consisting of free lambda light chain, kappa 2.5/lambda to 43.26, creatinine was elevated. Bone survey 06/20/2023 reporting suspicious focal lucency left mandible, fracture of left medial clavicle evident, focal lucencies within the left femur with endosteal scalloping, focal osteolytic lesions within the mid diaphysis of the right humerus and left humerus. She ultimately had orthopedic surgery. Path ology report from 09/14/2023 left femur reaming plasma cell myeloma, CD138 positive, lambda light chain restriction, Ki-67 10 to 20%. Bone marrow examination 11/17/2023, left iliac crest, plasma cell myeloma, markedly decreased iron storage. Plasma cells approximately 31.2% of the aspirate smears. Negative for amyloid, blasts not increased. Flow cytometry no evidence of NHL or increased blasts, high CD38 expression, CD56, CD138 moderate staining. CD19, CD20, CD45 and CD117 were negative. T cells 10% of total cells CD4: CD8 ratio of 2.6:1. Mature B cells 1% of total cells. MRI of the heart impression: amyloid morphology not present but could not exclude early amyloid involvement. Ordering Oncologist for all this testing was Dr. Trevin Alberto. Review of Systems 10 point review of systems is as stated in HPI Past Medical History Past Medical History: Atrial Fibrillation, Coronary Artery Disease (CAD), Cancer, Hyperlipidemia, Hypertension, Osteoarthritis (OA), Renal Disease Additional Past Medical History / Comment(s): multiple myeloma, chronic back pain History of Any Multi-Drug Resistant Organisms: None Reported Past Surgical History: Orthopedic Surgery Past Psychological History: No Psychological Hx Reported Smoking Status: Never smoker Past Alcohol Use History: None Reported Past Drug Use History: None Reported - Past Family History Mother Family Medical History: Cancer, Hypertension Father Family Medical History: Hypertension Brother(s) Family Medical History: Cancer, Diabetes Mellitus, Liver Disease Medications and Allergies Home Medications Medication Instructions Recorded Confirmed Type Acetaminophen Tab [Tylenol Tab] 500 mg PO Q6H PRN 11/15/23 11/15/23 History Apixaban [Eliquis] 2.5 mg PO BID@0900,1700 11/15/23 11/15/23 History Cholecalciferol [Vitamin D3 (25 25 mcg PO DAILY 11/15/23 11/15/23 History Mcg = 1000 Iu)] Diclofenac Sodium Gel [Voltaren 1% 4 gm TOPICAL Q6H PRN 11/15/23 11/15/23 History Gel] Ezetimibe [Zetia] 10 mg PO HS 11/15/23 11/15/23 History Furosemide [Lasix] 40 mg PO DAILY 11/15/23 11/15/23 History HYDROcodone/APAP 10-325MG [[place] 1 tab PO Q8H PRN 11/15/23 11/15/23 History 10-325] Lidocaine 2% Gel 1 applic TOPICAL Q6H PRN 11/15/23 11/15/23 History [place]-3/Dha/Epa/Fish Oil [Fish Oil 1 cap PO DAILY 11/15/23 11/15/23 History 1,000 mg Softgel] cloNIDine 0.1 MG/24HR PATCH 1 patch TRANSDERM FR 11/15/23 11/15/23 History [Catapres-TTS] hydrALAZINE HCL [Apresoline] 25 mg PO BID 11/15/23 11/15/23 History Allergies Allergy/AdvReac Type Severity Reaction Status Date / Time doxazosin Allergy Unknown Verified 11/15/23 08:59 Penicillins Allergy Unknown Verified 11/15/23 08:59 Childhood Physical Exam Vitals: Vital Signs Temp Pulse Pulse Resp BP BP Pulse Ox 11/16/23 08:05 98.0 F 55 L 16 143/74 97 11/16/23 03:44 98.0 F 58 L 18 132/64 97 11/15/23 23:34 98.0 F 62 18 129/63 97 11/15/23 20:00 98.4 F 59 L 18 137/64 98 11/15/23 16:00 98.2 F 60 18 135/66 98 11/15/23 15:43 57 L 16 121/75 97 11/15/23 12:35 58 L 18 103/55 97 Intake and Output 11/15/23 11/16/23 11/16/23 22:59 06:59 14:59 Intake Total 240 Output Total 300 200 Balance -60 -200 Intake: Oral 240 Output: Urine 300 200 Other: Voiding Method External Catheter External Catheter External Catheter Weight 61.008 kg - Constitutional General appearance: cooperative, mild distress, thin - EENT Eyes: anicteric sclerae, EOMI ENT: hearing grossly normal - Neck Neck: no lymphadenopathy - Respiratory Respiratory: bilateral: CTA - Cardiovascular Rhythm: regular Heart sounds: normal: S1, S2 Abnormal Heart Sounds: no systolic murmur, no diastolic murmur, no rub, no S3 Gallop, no S4 Gallop, no click, no other leg Peripheral Edema: bilateral: None - Musculoskeletal Musculoskeletal: generalized weakness - Psychiatric Psychiatric: A&O x's 3, appropriate affect, intact judgment & insight Results CBC & Chem 7: 11/16/23 07:19 11/16/23 07:19 Labs: Abnormal Lab Results - Last 24 Hours (Table) 11/15/23 11/15/23 11/16/23 Range/Units 01:38 08:53 07:19 RBC 2.08 L (3.80-5.40) m/uL Hgb 6.2 L* (11.4-16.0) gm/dL Hct 19.4 L* (34.0-46.0) % Sodium (137-145) mmol/L Potassium (3.5-5.1) mmol/L Chloride (98-107) mmol/L BUN (7-17) mg/dL Creatinine (0.52-1.04) mg/dL Iron 30 L (50-170) UG/DL TIBC 154 L (228-460) UG/DL Transferrin 110.0 L (204.0-354.0) mg/dL Crossmatch See Detail 11/16/23 Range/Units 07:19 RBC (3.80-5.40) m/uL Hgb (11.4-16.0) gm/dL Hct (34.0-46.0) % Sodium 134 L (137-145) mmol/L Potassium 3.4 L (3.5-5.1) mmol/L Chloride 110 H (98-107) mmol/L BUN 27 H (7-17) mg/dL Creatinine 1.69 H (0.52-1.04) mg/dL Iron (50-170) UG/DL TIBC (228-460) UG/DL Transferrin (204.0-354.0) mg/dL Crossmatch CT scan - abdomen: report reviewed CT scan - pelvis: report reviewed Assessment and Plan (1) Anemia Current Visit: Yes Status: Acute Priority: High Code(s): D64.9 - ANEMIA, UNSPECIFIED SNOMED Code(s): 230391530 (2) Bone pain Current Visit: Yes Status: Acute Priority: High Code(s): M89.8X9 - OTHER SPECIFIED DISORDERS OF BONE, UNSPECIFIED SITE SNOMED Code(s): 82815049 Plan: Normocytic, normochromic anemia -Likely secondary to plasma cell myeloma, new diagnosis. Patient will likely remain anemic until she has had treatment for myeloma. -Transfuse for hemoglobin less than 7 or, if symptomatic. -Anemia workup not showing significant iron deficiency. No need for iron at this time. Few additional labs ordered for nutritional evaluation -Patient does have a decubitus ulcer/chronic inflammation. Will contribute/exacerbate anemial. -Concerns for GI bleeding, exacerbating anemia. GI has seen pt, no plan for endoscopy at this time. Recent diagnosis of plasma cell multiple myeloma -Pt planning to move locally with her daughter -Records requested. Summary from the workup done at [facility] summarized in HPI. -Pt was able to describe treatment options so, treatment has been discussed with her. Requested information from Oncologist Dr. Alberto to see what plans have been discussed with patient and if patient has received any treatment or rank ligand inhibitor. -Will get her set up with Medical Onc outpt to move forward with treatment if she and her family wish to do so.
[2023-11-16] MEDS: POTASSIUM CHLORIDE ER 20 MEQ TAB.ER PO STA (16:47)
[2023-11-16] MEDS ORDERED: ZINC OXIDE PASTE (Z-GUARD) 1 APPLIC TOPICAL PRN (18:12)
[2023-11-17 00:46] VITALS: RESP 16
--- NOTE | 2023-11-17 09:34 | P.PN ---
Subjective Progress Note Date: 11/17/23 Principal diagnosis: Abdominal pain This is a pleasant 88-year-old female who was brought into the emergency department early this morning. She has a past medical history of atrial fibrillation on Eliquis, coronary artery disease hyperlipidemia, hypertension, chronic renal disease and multiple myeloma. Apparently patient had been at [facility] and underwent surgery for a fractured femur and then was discharged to [facility] but was sent back for urinary tract infection. She was treated for urinary tract infection for about 3 days at [facility] and then discharged to [facility] [place] yesterday. Patient also has a history of recent diagnosis of multiple myeloma in April 2023. She has had multiple fractures according to her daughter since that time. Apparently after her surgery she had quite a bit of constipation while she was at [facility] she had to have manual disimpaction according to her daughter. The daughter states that she was called this morning and said that patient was noted to have a bloody bowel movement and was sent into the emergency department. Patient currently states that she is having abdominal pain. She is unsure if she had blood in her stool. She denies any nausea or vomiting right now. She had a CT of the abdomen pelvis with findings of diverticulosis without any evidence of diverticulitis. Patient is afebrile. She was noted to have leukocytosis on admission. Admitting labs WBC 12.0 hemoglobin 8.6 hematocrit 27 platelet count 293,000 INR 1.0 sodium 134 potassium 3.2 BUN 32 creatinine 1.7 total bilirubin 0.2 AST 26 ALT 14 alkaline phosphatase 91 stool occult blood positive 11/16/2023 Patient seen and examined today as a follow-up. States she still having some abdominal pain. No nausea or vomiting. States a lot of hip pain from surgery. She did have a drop in her hemoglobin today to 6.2, iron 30 TIBC 154 ferritin 110. Patient reports that she had a loose bowel movement this morning nonbloody however nursing states that the the did not believe she had a bowel movement. 11/17/2023 Patient seen and examined today as a follow-up. She states that she still has pain in the abdomen mostly in left lower quadrant. No nausea or vomiting. She has been tolerating clear liquid diet. She states that she had a small episode of diarrhea this morning unsure if it was bloody. She did end up agreeing to getting a unit of blood yesterday. Today's labs are currently pending. Oncolog y following for multiple myeloma. She remains afebrile. Objective - Vital Signs Vital signs: Vital Signs Temp 98.0 F 11/17/23 04:00 Pulse 63 11/17/23 04:00 Resp 16 11/17/23 04:00 BP 157/57 11/17/23 04:00 Pulse Ox 96 11/17/23 04:00 FiO2 Intake & Output 11/16/23 11/16/23 11/17/23 06:59 18:59 06:59 Intake Total 240 358 288 Output Total 500 Balance -260 358 288 Weight 61.008 kg Intake: Oral 240 358 Blood Product 0 288 Rc Pheresis 2 As3 Unit 0 288 [id number] Output: Urine 500 Other: Voiding Method External Catheter External Catheter External Catheter # Voids 2 # Bowel Movements 1 2 - Exam General appearance: The patient is alert, oriented, appears in no acute distress. HET: Head is normocephalic and atraumatic. Conjunctiva pink. Sclera anicteric. Neck: Supple without lymphadenopathy. Abdomen: Soft, left lower quadrant tenderness, nondistended. Extremities: Normal skin color and turgor. No pedal edema Skin: No rashes, no jaundice Neurological: No focal deficits. Alert and oriented. - Labs CBC & Chem 7: 11/16/23 07:19 11/16/23 07:19 Labs: Abnormal Lab Results - Last 24 Hours (Table) 11/15/23 11/16/23 11/16/23 Range/Units 01:38 07:19 07:19 RBC 2.08 L (3.80-5.40) m/uL Hgb 6.2 L* (11.4-16.0) gm/dL Hct 19.4 L* (34.0-46.0) % Sodium 134 L (137-145) mmol/L Potassium 3.4 L (3.5-5.1) mmol/L Chloride 110 H (98-107) mmol/L BUN 27 H (7-17) mg/dL Creatinine 1.69 H (0.52-1.04) mg/dL Crossmatch See Detail Assessment and Plan (1) Abdominal pain Narrative/Plan: 88-year-old female presenting to the emergency department with abdominal pain and reported bloody bowel movement from [facility] [place]. This in a patient with diagnosis of multiple myeloma in April 2023, atrial fibrillation on Eliquis and who had recent hospitalization for a fractured femur with surgical repair at [facility] who was then discharged to [facility] for rehab and readmitted to [facility] for urinary tract infection and was just discharged yesterday. Patient was then sent to [facility] [place] to continue rehab. Apparently patient had some abdominal pain had a bowel movement and staff noted that she had blood in her brief. According to the patient she did have some constipation during her hospitalization when she had her fracture repair the daughter stated that they had to manually disimpact her and she has been taking [place]. Apparently she was having then some diarrhea over the last couple days could be secondary to antibiotics for urinary tract infection. She does take Eliquis 2.5 mg for atrial fibrillation. Unclear etiology of abdominal pain and rectal bleeding. CT shows no evidence of colitis reports diverticulosis without diverticulitis but patient presenting more with clinical picture of infectious colitis in the setting of leukocytosis. Will start IV antibiotics. Recommend C. difficile stool studies. Keep on clear liquid diet and continue to monitor. Current Visit: Yes Status: Acute Code(s): R10.9 - UNSPECIFIED ABDOMINAL PAIN SNOMED Code(s): 19395444 (2) GI bleed Narrative/Plan: Patient had large maroon-colored bowel movement this afternoon. 1 unit of blood was ordered yesterday morning which patient originally refused. However she did end up agreeing to blood transfusion. Current labs pending. Discussed with patient if she continues to to have bloody stool she may require endoscopic evaluation. Patient states she is not interested in having endoscopic evaluation at this time. Likely dealing with infectious or ischemic colitis. Continue with symptomatic treatment with IV antibiotics, patient may advance to full liquid diet. Monitor CBC daily, transfuse for hemoglobin less than 7. Current Visit: Yes Status: Acute Code(s): K92.2 - GASTROINTESTINAL HEMORRHAGE, UNSPECIFIED SNOMED Code(s): 84240174 (3) Multiple myeloma Narrative/Plan: Oncology consulted Current Visit: Yes Status: Acute Code(s): C90.00 - MULTIPLE MYELOMA NOT HAVING ACHIEVED REMISSION SNOMED Code(s): 725138007 (4) Anemia Narrative/Plan: Likely acute on chronic from lower GI bleed. Oncology following Current Visit: Yes Status: Acute Priority: High Code(s): D64.9 - ANEMIA, UNSPECIFIED SNOMED Code(s): 551166075 Plan: 1. Continue symptomatic and supportive care 2. Daily CBC, transfuse for hemoglobin less than 7 3. Patient is post 1 unit blood transfusion 4. Continue IV antibiotics while inpatient 5. Consult to oncology for multiple myeloma, anemia 6. Rectal bleeding likely secondary from colitis. Discussed possible need for colonoscopy, patient is not interested in endoscopic evaluation at this time. Continue to monitor bleeding. May need to consider possible outpatient colonoscopy versus consult to general surgery. Thank you for allowing us to participate in the care of the patient, the GI service will sign off, gastroenterology will not be available at the hospital this weekend and through next week. If further evaluation by gastroenterology is required the patient will need transfer as per the primary team's discretion. Dr. mIer Nunez I agree with the dictator's note, documented as a scribe by Sylvie Velásquez.
[2023-11-17 10:41] LABS: HCT 24.2 % (34.0-46.0); HGB 7.3 gm/dL (11.4-16.0); Hypochromasia Marked; MCH 29.5 pg (25.0-35.0); MCHC 30.3 g/dL (31.0-37.0); MCV 97.3 fL (80.0-100.0); Platelet Count 294 k/uL (150-450); Poikilocytosis Slight; RBC 2.49 m/uL (3.80-5.40); WBC 10.4 k/uL (3.8-10.6)
[2023-11-17 10:59] LABS: African American GFR (CKD) 33 (>60 ml/min/1.73 sqM); Anion Gap 6 mmol/L; Blood Urea Nitrogen 22 mg/dL (7-17); Calcium 9.8 mg/dL (8.4-10.2); Carbon Dioxide 19 mmol/L (22-30); Chloride 112 mmol/L (98-107); Glucose 97 mg/dL (74-99); Non-African American GFR(CKD) 28 (>60 ml/min/1.73 sqM); Potassium 3.6 mmol/L (3.5-5.1); Sodium 137 mmol/L (137-145)
[2023-11-17 11:56] LABS: Reticulocyte % 1.6 % (0.5-2.0)
[2023-11-17] MEDS: LEVOFLOXACIN 250MG-D5W PMX 250 MG in DEXTROSE/WATER 1 50ML.BAG IVPB SCH (12:29)
--- NOTE | 2023-11-17 21:02 | P.PN ---
Subjective Progress Note Date: 11/17/23 At today's visit patient is resting comfortably in bed. Patient reports persisting abdominal pain and intermittent nausea. Patient did decline physical therapy earlier stating she just did not feel well enough. Spoke with case management, at this time patient is not a candidate for rehab unless she starts to actively participate with physical therapy team. Hemoglobin today 7.3 s/p 1 unit PRBCs. Platelets stable at 294,000. Objective - Vital Signs Vital signs: Vital Signs Temp 97.8 F 11/17/23 09:45 Pulse 56 L 11/17/23 09:45 Resp 16 11/17/23 09:45 BP 151/72 11/17/23 09:45 Pulse Ox 98 11/17/23 09:45 FiO2 Intake & Output 11/16/23 11/17/23 11/17/23 18:59 06:59 18:59 Intake Total 358 288 480 Balance 358 288 480 Weight 61.008 kg Intake: Oral 358 480 Blood Product 0 288 Rc Pheresis 2 As3 Unit 0 288 [id number] Other: Voiding Method External Catheter External Catheter External Catheter # Voids 2 # Bowel Movements 1 2 1 - Constitutional General appearance: Present: no acute distress - EENT Eyes: Present: anicteric sclerae, EOMI ENT: Present: hearing grossly normal - Respiratory Details: breathing even and unlabored - Cardiovascular Details: skin warm and dry - Gastrointestinal General gastrointestinal: Present: soft, tenderness Localized gastrointestinal: tender: diffuse - Integumentary Integumentary: Present: pale. Absent: cyanotic - Musculoskeletal Musculoskeletal: Present: generalized weakness - Psychiatric Psychiatric: Present: A&O x's 3 - Labs CBC & Chem 7: 11/17/23 09:55 11/17/23 09:55 Labs: Abnormal Lab Results - Last 24 Hours (Table) 11/15/23 11/17/23 11/17/23 Range/Units 01:38 09:55 09:55 RBC 2.49 L (3.80-5.40) m/uL Hgb 7.3 L (11.4-16.0) gm/dL Hct 24.2 L (34.0-46.0) % MCHC 30.3 L (31.0-37.0) g/dL Chloride 112 H (98-107) mmol/L Carbon Dioxide 19 L (22-30) mmol/L BUN 22 H (7-17) mg/dL Creatinine 1.63 H (0.52-1.04) mg/dL Crossmatch See Detail Assessment and Plan (1) Anemia Current Visit: Yes Status: Acute Priority: High Code(s): D64.9 - ANEMIA, UNSPECIFIED SNOMED Code(s): 228097854 (2) Multiple myeloma Current Visit: Yes Status: Acute Priority: High Code(s): C90.00 - MULTIPLE MYELOMA NOT HAVING ACHIEVED REMISSION SNOMED Code(s): 299789594 (3) Bone pain Current Visit: Yes Status: Acute Priority: High Code(s): M89.8X9 - OTHER SPECIFIED DISORDERS OF BONE, UNSPECIFIED SITE SNOMED Code(s): 31200131 Plan: Normocytic, normochromic anemia -Likely secondary to plasma cell myeloma, new diagnosis. Patient will likely remain anemic until she has had treatment for myeloma. -Hgb 7.3 today, s/p 1 unit PRBCs. Transfuse for hemoglobin less than 7 or, if symptomatic. -Anemia workup negative for nutritional deficiencies thus far. Copper, MMA pending . -Patient does have a decubitus ulcer/chronic inflammation. Will contribute/exacerbate anemia -Concerns for GI bleeding, exacerbating anemia. GI has seen pt, no plan for endoscopy at this time. Recent diagnosis of plasma cell multiple myeloma -Pt planning to move locally with her daughter -Records requested. Summary from the workup done at [facility] summarized in consult HPI. -Pt was not able to describe treatment options, so treatment has been discussed with her. Requested information from Oncologist Dr. Alberto to see what plans have been discussed with patient and if patient has received any treatment or rank ligand inhibitor. Upon review of Dr. Mayen clinic notes, patient was last seen by him on 07/31/2023. During that time patient was living alone and was unwilling to move in with family and was having issues with chronic pain and neuropathies. Goals of care were discussed with patient at visits at 07/10/23 and 07/31/2023. At his last visit Dr. Alberto did not recommend any systemic treatment due to factors stated above as he saw a limited value and risking potential side effects due to patient's overall condition. He had recommended patient to transition away from living alone and to consider home hospice care services. Patient stated that she does not recall his recommendations but does want to seek active treatment. It was discussed in great detail with patient that her PS currently is too poor to undergo active systemic treatment and she would first need to become stronger, as she would need to be able to come to clinic for treatments and f/u. Encouraged pt to actively participate with PT team, and we can f/u in clinic upon discharge from hospital and/or rehab to further discuss potential treatment options, but first her PS will need to improve. Patient verbalized understanding. Case has also been discussed with case management. Will await further recommendations from PT about plans for discharge, home vs rehab vs long care nursing facility Doctor attests: I performed a history and physical examination of this patient, developed impression and plan of care. Discussed with dictator. I agree with dictators note, documented as a scribe.
[2023-11-17] MEDS: ONDANSETRON ODT 4 MG TAB PO PRN (23:19)
--- NOTE | 2023-11-18 00:07 | P.PN ---
Subjective Progress Note Date: 11/16/23 Patient is a 88-year-old female with past medical history of hypertension, hyperlipidemia, atrial fibrillation on anticoagulation with Eliquis, osteoarthritis, CKD and multiple myeloma recently diagnosed in April 2023 presents to ER with complaints of due to complaints of bloody bowel movement from rehab. [facility] staff found blood in her brief. Patient was at [facility] recently underwent surgery for fractured femur and then was discharged to [facility] but was sent back for urinary tract infection. She was treated for urinary tract infection for 3 days at [facility] and discharged to [facility] the [place] yesterday. Patient had issues with constipation while she was at hospital and did not have any bowel meant for 10 days. She was given MiraLAX and multiple stool softeners and finally had bowel movement. Patient had to have manual disimpaction as per daughter. She was called this morning with the patient had a bloody bowel movement and was sent to ER. Patient is also having abdominal pain mainly in the left lower quadrant. Denies any nausea or vomiting. No fever no chills. No cough or sputum production. No chest pain or shortness of breath. Laboratory data showed WBC 12.0 hemoglobin 8.6 and platelets 293 Sodium 134 potassium 3.2 chloride 104 bicarb is 23 BUN 32 and creatinine 1.76 and blood sugar 92 and calcium 10.8 Liver enzymes are not elevated albumin 2.[address] of the abdomen pelvis showed colonic diverticulosis greatest distally without convincing CT evidence for acute diverticulitis. No bowel obstruction. Postsurgical changes to the left femur seen. Some erosive changes at the level of the ischial tuberosity with abnormal heterogenous thickening could reflect age-indeterminate infectious process or osteomyelitis in the appropriate clinical setting correlate clinically. 11/16/2023 Patient is currently lying in the bed. On room air. Still complains of abdominal pain and hip pain. No complaints of nausea or episodes of vomiting. Still having loose bowel movements. Laboratory showed WBC 8.3 hemoglobin dropped to 6.2. Patient is being transfused with 1 unit of PRBC Platelets 213, sodium 134 potassium 3.4 chloride 110 bicarb is 22 BUN 27 creatinine 1.69. Stool for C. difficile is negative. Patient is being continued on antibiotics Levaquin and Lasix. Also on IV hydration with normal saline at 75 cc/h. GI and hematology is on board. Objective - Vital Signs Vital signs: Vital Signs Temp 97.8 F 11/16/23 21:08 Pulse 69 11/16/23 21:08 Resp 18 11/16/23 21:08 BP 153/74 11/16/23 21:08 Pulse Ox 98 11/16/23 21:08 FiO2 Intake & Output 11/16/23 11/16/23 11/17/23 06:59 18:59 06:59 Intake Total 240 358 288 Output Total 500 Balance -260 358 288 Weight 61.008 kg Intake: Oral 240 358 Blood Product 0 288 Rc Pheresis 2 As3 Unit 0 288 [id number] Output: Urine 500 Other: Voiding Method External Catheter External Catheter External Catheter # Bowel Movements 1 - Exam PHYSICAL EXAMINATION: Patient is lying in the bed comfortably, no acute distress, awake alert and oriented.. HEENT: Normocephalic. Neck is supple. Pupils reactive. Nostrils clear. Oral cavity is moist. Neck reveals no JVD, carotid bruits, or thyromegaly. CHEST EXAMINATION: Trachea is central. Symmetrical expansion. Lung law clear to auscultation and percussion. CARDIAC: Normal S1, S2 with no gallops. No murmurs ABDOMEN: Soft. Bowel sounds present. Left lower quadrant tenderness. No guarding or rigidity. No organomegaly. No abdominal bruits. Extremities: reveal no edema. No clubbing or cyanosis Neurologically awake, alert, oriented x 2-3 with well-coordinated movements. No gross focal deficits noted Skin: No rash or skin lesions. Psychiatric: Coperative. Nonsuicidal Musculoskeletal: No joint swelling or deformity. Normal range of motion. - Labs CBC & Chem 7: 11/17/23 09:55 11/17/23 09:55 Labs: Abnormal Lab Results - Last 24 Hours (Table) 11/15/23 11/16/23 11/16/23 Range/Units 01:38 07:19 07:19 RBC 2.08 L (3.80-5.40) m/uL Hgb 6.2 L* (11.4-16.0) gm/dL Hct 19.4 L* (34.0-46.0) % Sodium 134 L (137-145) mmol/L Potassium 3.4 L (3.5-5.1) mmol/L Chloride 110 H (98-107) mmol/L BUN 27 H (7-17) mg/dL Creatinine 1.69 H (0.52-1.04) mg/dL Crossmatch See Detail Assessment and Plan Assessment: Abdominal pain with possible infectious colitis. Patient was noted to have blood in her brief. CT showed evidence of diverticulosis without diverticulitis. Acute blood loss anemia with maroon-colored stools. Likely GI bleed. Patient is transfused with 1 unit of PRBC on 11/16/2023 Recent admission at [facility] due to left femur fracture status postsurgical repair Recently treated urinary tract infection and severe constipation requiring manual disimpaction at [facility]. Multiple myeloma diagnosed in April 2023 Paroxysmal atrial fibrillation on anticoagulation with Eliquis Hypertension Hyperlipidemia Osteoarthritis Chronic kidney disease stage III Hypokalemia replace it. Mild to moderate protein calorie malnutrition DVT prophylaxis with SCDs. Plan: Patient will be continued on IV hydration with normal saline. Due to leukocytosis and abdominal pain, suspected infectious colitis. Patient was started on Levaquin and Flagyl as per GI recommendations. Monitor H&H Continue with pain management and bowel regimen. Eliquis is on hold currently. Continue other home medications and follow-up closely. Stool for C. difficile toxin is negative.. Discussed with the patient and her daughter at bedside in detail. Follow-up closely. Time with Patient: Greater than 30
--- NOTE | 2023-11-18 00:09 | P.PN ---
Subjective Progress Note Date: 11/17/23 Patient is a 88-year-old female with past medical history of hypertension, hyperlipidemia, atrial fibrillation on anticoagulation with Eliquis, osteoarthritis, CKD and multiple myeloma recently diagnosed in April 2023 presents to ER with complaints of due to complaints of bloody bowel movement from rehab. skilled nursing staff found blood in her brief. Patient was at [facility] recently underwent surgery for fractured femur and then was discharged to [facility] but was sent back for urinary tract infection. She was treated for urinary tract infection for 3 days at [facility] and discharged to [facility] on the [place] yesterday. Patient had issues with constipation while she was at hospital and did not have any bowel meant for 10 days. She was given MiraLAX and multiple stool softeners and finally had bowel movement. Patient had to have manual disimpaction as per daughter. She was called this morning with the patient had a bloody bowel movement and was sent to ER. Patient is also having abdominal pain mainly in the left lower quadrant. Denies any nausea or vomiting. No fever no chills. No cough or sputum production. No chest pain or shortness of breath. Laboratory data showed WBC 12.0 hemoglobin 8.6 and platelets 293 Sodium 134 potassium 3.2 chloride 104 bicarb is 23 BUN 32 and creatinine 1.76 and blood sugar 92 and calcium 10.8 Liver enzymes are not elevated albumin 2.[address] of the abdomen pelvis showed colonic diverticulosis greatest distally without convincing CT evidence for acute diverticulitis. No bowel obstruction. Postsurgical changes to the left femur seen. Some erosive changes at the level of the ischial tuberosity with abnormal heterogenous thickening could reflect age-indeterminate infectious process or osteomyelitis in the appropriate clinical setting correlate clinically. 11/16/2023 Patient is currently lying in the bed. On room air. Still complains of abdominal pain and hip pain. No complaints of nausea or episodes of vomiting. Still having loose bowel movements. Laboratory showed WBC 8.3 hemoglobin dropped to 6.2. Patient is being transfused with 1 unit of PRBC Platelets 213, sodium 134 potassium 3.4 chloride 110 bicarb is 22 BUN 27 creatinine 1.69. Stool for C. difficile is negative. Patient is being continued on antibiotics Levaquin and Lasix. Also on IV hydration with normal saline at 75 cc/h. GI and hematology is on board. 11/17/2023 Patient is currently resting in the bed. Awake alert and oriented. She is still having loose stools sometimes maroon-colored. No episodes of vomiting. No complaints of nausea. Still complains of abdominal pain mainly left lower quadrant. Hemoglobin stable today. Laboratory data showed WBC 10.4 hemoglobin 7.3 and platelets 294 BUN 22 and creatinine 1.63. GI and hematology on board. Current medications reviewed. Objective - Vital Signs Vital signs: Vital Signs Temp 97.8 F 11/17/23 09:45 Pulse 57 L 11/17/23 20:00 Resp 16 11/17/23 20:00 BP 173/76 11/17/23 20:00 Pulse Ox 98 11/17/23 20:00 FiO2 Intake & Output 11/17/23 11/17/23 11/18/23 06:59 18:59 06:59 Intake Total 288 480 Balance 288 480 Intake: Oral 480 Blood Product 288 Rc Pheresis 2 As3 Unit 288 [id number] Other: Voiding Method External Catheter External Catheter External Catheter # Voids 2 2 # Bowel Movements 2 1 - Exam PHYSICAL EXAMINATION: Patient is lying in the bed comfortably, no acute distress, awake alert and oriented.. HEENT: Normocephalic. Neck is supple. Pupils reactive. Nostrils clear. Oral cavity is moist. Neck reveals no JVD, carotid bruits, or thyromegaly. CHEST EXAMINATION: Trachea is central. Symmetrical expansion. Lung law clear to auscultation and percussion. CARDIAC: Normal S1, S2 with no gallops. No murmurs ABDOMEN: Soft. Bowel sounds present. Left lower quadrant tenderness. No guarding or rigidity. No organomegaly. No abdominal bruits. Extremities: reveal no edema. No clubbing or cyanosis Neurologically awake, alert, oriented x 2-3 with well-coordinated movements. No gross focal deficits noted Skin: No rash or skin lesions. Psychiatric: Coperative. Nonsuicidal Musculoskeletal: No joint swelling or deformity. Normal range of motion. - Labs CBC & Chem 7: 11/17/23 09:55 11/17/23 09:55 Labs: Abnormal Lab Results - Last 24 Hours (Table) 11/17/23 11/17/23 Range/Units 09:55 09:55 RBC 2.49 L (3.80-5.40) m/uL Hgb 7.3 L (11.4-16.0) gm/dL Hct 24.2 L (34.0-46.0) % MCHC 30.3 L (31.0-37.0) g/dL Chloride 112 H (98-107) mmol/L Carbon Dioxide 19 L (22-30) mmol/L BUN 22 H (7-17) mg/dL Creatinine 1.63 H (0.52-1.04) mg/dL Assessment and Plan Assessment: Abdominal pain with possible infectious colitis. Patient was noted to have blood in her brief. CT showed evidence of diverticulosis without diverticulitis. Acute blood loss anemia with maroon-colored stools. Likely GI bleed. Patient is transfused with 1 units of PRBC on 11/16/2023 Recent admission at [facility] due to left femur fracture status postsurgical repair Recently treated urinary tract infection and severe constipation requiring manual disimpaction at [facility]. Multiple myeloma diagnosed in April 2023 Paroxysmal atrial fibrillation on anticoagulation with Eliquis Hypertension Hyperlipidemia Osteoarthritis Chronic kidney disease stage III Hypokalemia replace it. Mild to moderate protein calorie malnutrition DVT prophylaxis with SCDs. Plan: Patient will be continued on IV hydration with normal saline. Due to leukocytosis and abdominal pain, suspected infectious colitis. Patient was started on Levaquin and Flagyl as per GI recommendations. Monitor H&H Continue with pain management and bowel regimen. Eliquis is on hold currently. Continue other home medications and follow-up closely. Stool for C. difficile toxin is negative.. Discussed with the patient and her daughter at bedside in detail. Follow-up closely. Time with Patient: Greater than 30
[2023-11-18] MEDS: hydrALAZINE HCL 20 MG/ML 1 ML VIAL IVP STA (04:49)
[2023-11-18 11:45] LABS: Basophils # (A) 0.1 k/uL (0-0.2); Basophils % (A) 1 %; Eosinophils # (A) 0.1 k/uL (0-0.7); Eosinophils % (A) 1 %; HCT 24.8 % (34.0-46.0); HGB 7.5 gm/dL (11.4-16.0); Hypochromasia Marked; Lymphocytes # (A) 1.4 k/uL (1.0-4.8); Lymphocytes % (A) 15 %; MCH 28.9 pg (25.0-35.0); MCHC 30.2 g/dL (31.0-37.0); Monocytes # (A) 0.6 k/uL (0-1.0); Monocytes % (A) 6 %; Neutrophils # (A) 7.6 k/uL (1.3-7.7); Neutrophils % (A) 77 %; Platelet Count 248 k/uL (150-450); RBC 2.58 m/uL (3.80-5.40); WBC 9.8 k/uL (3.8-10.6)
[2023-11-18 11:49] LABS: African American GFR (CKD) 37 (>60 ml/min/1.73 sqM); Anion Gap 4 mmol/L; Blood Urea Nitrogen 21 mg/dL (7-17); Calcium 9.4 mg/dL (8.4-10.2); Carbon Dioxide 20 mmol/L (22-30); Chloride 113 mmol/L (98-107); Glucose 79 mg/dL (74-99); Non-African American GFR(CKD) 32 (>60 ml/min/1.73 sqM); Potassium 3.4 mmol/L (3.5-5.1); Sodium 137 mmol/L (137-145)
[2023-11-18] MEDS: hydrALAZINE HCL 25 MG TAB PO SCH (12:35)
--- NOTE | 2023-11-18 13:47 | P.PN ---
Subjective Progress Note Date: 11/18/23 Patient is a 88-year-old female with past medical history of hypertension, hyperlipidemia, atrial fibrillation on anticoagulation with Eliquis, osteoarthritis, CKD and multiple myeloma recently diagnosed in April 2023 presents to ER with complaints of due to complaints of bloody bowel movement from rehab. [facility] staff found blood in her brief. Patient was at [facility] recently underwent surgery for fractured femur and then was discharged to [facility] but was sent back for urinary tract infection. She was treated for urinary tract infection for 3 days at [facility] and discharged to [facility] on the [place] yesterday. Patient had issues with constipation while she was at hospital and did not have any bowel meant for 10 days. She was given MiraLAX and multiple stool softeners and finally had bowel movement. Patient had to have manual disimpaction as per daughter. She was called this morning with the patient had a bloody bowel movement and was sent to ER. Patient is also having abdominal pain mainly in the left lower quadrant. Denies any nausea or vomiting. No fever no chills. No cough or sputum production. No chest pain or shortness of breath. Laboratory data showed WBC 12.0 hemoglobin 8.6 and platelets 293 Sodium 134 potassium 3.2 chloride 104 bicarb is 23 BUN 32 and creatinine 1.76 and blood sugar 92 and calcium 10.8 Liver enzymes are not elevated albumin 2.[address] of the abdomen pelvis showed colonic diverticulosis greatest distally without convincing CT evidence for acute diverticulitis. No bowel obstruction. Postsurgical changes to the left femur seen. Some erosive changes at the level of the ischial tuberosity with abnormal heterogenous thickening could reflect age-indeterminate infectious process or osteomyelitis in the appropriate clinical setting correlate clinically. 11/16/2023 Patient is currently lying in the bed. On room air. Still complains of abdominal pain and hip pain. No complaints of nausea or episodes of vomiting. Still having loose bowel movements. Laboratory showed WBC 8.3 hemoglobin dropped to 6.2. Patient is being transfused with 1 unit of PRBC Platelets 213, sodium 134 potassium 3.4 chloride 110 bicarb is 22 BUN 27 creatinine 1.69. Stool for C. difficile is negative. Patient is being continued on antibiotics Levaquin and Lasix. Also on IV hydration with normal saline at 75 cc/h. GI and hematology is on board. 11/17/2023 Patient is currently resting in the bed. Awake alert and oriented. She is still having loose stools sometimes maroon-colored. No episodes of vomiting. No complaints of nausea. Still complains of abdominal pain mainly left lower quadrant. Hemoglobin stable today. Laboratory data showed WBC 10.4 hemoglobin 7.3 and platelets 294 BUN 22 and creatinine 1.63. GI and hematology on board. 11/17. Patient seen and examined. Patient has been refusing to get out of bed or to participate in therapy. Discussed with patient detail need for her to be willing to do therapy. Diet advanced to regular REVIEW OF SYSTEMS: CONSTITUTIONAL: No fever, no malaise,. CARDIOVASCULAR: No chest pain, no palpitations, no syncope. PULMONARY: No shortness of breath, no cough, GASTROINTESTINAL: No diarrhea, no nausea, no vomiting, no abdominal pain. NEUROLOGICAL: No headaches, no weakness, PHYSICAL EXAMINATION: GENERAL: The patient is alert and oriented x3, not in any acute distress. Well developed, well nourished. HEENT: Pupils are round and equally reacting to light. EOMI. No scleral icterus. No conjunctival pallor. Normocephalic, atraumatic. No pharyngeal erythema. No thyromegaly. CARDIOVASCULAR: S1 and S2 present. No murmurs, rubs, or gallops. PULMONARY: Chest is clear to auscultation, no wheezing or crackles. ABDOMEN: Soft, nontender, nondistended, normoactive bowel sounds. No palpable organomegaly. MUSCULOSKELETAL: No joint swelling or deformity. EXTREMITIES: No cyanosis, clubbing, or pedal edema. NEUROLOGICAL: Gross neurological examination did not reveal any focal deficits. SKIN: No rashes. Assessment and plan Abdominal pain with possible infectious colitis. Patient was noted to have blood in her brief. CT showed evidence of diverticulosis without diverticulitis. Acute blood loss anemia with maroon-colored stools. Likely GI bleed. Patient is transfused with 1 units of PRBC on 11/16/2023 Recent admission at [facility] due to left femur fracture status postsurgical repair Recently treated urinary tract infection and severe constipation requiring manual disimpaction at [facility]. Multiple myeloma diagnosed in April 2023 Paroxysmal atrial fibrillation on anticoagulation with Eliquis Hypertension Hyperlipidemia Osteoarthritis Chronic kidney disease stage III Hypokalemia replace it. Mild to moderate protein calorie malnutrition DVT prophylaxis with SCDs. Plan: Monitor vital signs Monitor CBC Monitor CMP Continue IV hydration with normal saline. Due to leukocytosis and abdominal pain, suspected infectious colitis. Continue Levaquin and Flagyl as per GI recommendations. Monitor H&H Continue with pain management and bowel regimen. Nisreenquis is on hold currently. Hematology oncology on board, recommend outpatient follow-up at which time they will discuss treatment options for plasma cell multiple myeloma Labs and medication were reviewed.. Continue same treatment. Continue with symptomatic treatment. Resume home medication. Monitor labs and vitals. DVT and GI prophylaxis. Further recommendations as per clinical course of the patient Dictation was produced using [employer] dictation software. please excuse any grammatical, word or spelling errors. Objective - Vital Signs Vital signs: Vital Signs Temp 96.6 F L 11/18/23 09:33 Pulse 62 11/18/23 09:33 Resp 16 11/18/23 09:33 BP 176/75 11/18/23 09:33 Pulse Ox 97 11/18/23 09:33 FiO2 Intake & Output 11/17/23 11/18/23 11/18/23 18:59 06:59 18:59 Intake Total 480 Balance 480 Intake: Oral 480 Other: Voiding Method External Catheter External Catheter # Voids 2 # Bowel Movements 1 1 - Labs CBC & Chem 7: 11/18/23 10:38 11/18/23 10:38 Labs: Abnormal Lab Results - Last 24 Hours (Table) 11/17/23 Range/Units 09:55 Chloride 112 H (98-107) mmol/L Carbon Dioxide 19 L (22-30) mmol/L BUN 22 H (7-17) mg/dL Creatinine 1.63 H (0.52-1.04) mg/dL
[2023-11-18] MEDS: HYDROcodone/APAP 10-325MG 1 EACH TAB PO PRN (15:28)
[2023-11-18] MEDS: POTASSIUM CHLORIDE ER 20 MEQ TAB.ER PO SCH ×2 (18:30→21:18)
[2023-11-19 07:53] LABS: Basophils # (A) 0.1 k/uL (0-0.2); Basophils % (A) 1 %; Eosinophils # (A) 0.1 k/uL (0-0.7); Eosinophils % (A) 1 %; HCT 22.3 % (34.0-46.0); Hypochromasia Moderate; Lymphocytes # (A) 1.9 k/uL (1.0-4.8); Lymphocytes % (A) 21 %; MCH 29.6 pg (25.0-35.0); MCHC 31.4 g/dL (31.0-37.0); MCV 94.3 fL (80.0-100.0); Mean Platelet Volume 8.2; Monocytes # (A) 0.5 k/uL (0-1.0); Monocytes % (A) 5 %; Neutrophils # (A) 6.4 k/uL (1.3-7.7); Neutrophils % (A) 71 %; Platelet Count 246 k/uL (150-450); RBC 2.36 m/uL (3.80-5.40); RDW 15.1 % (11.5-15.5)
[2023-11-19 08:28] LABS: ALT 8 U/L (4-34); AST 18 U/L (14-36); African American GFR (CKD) 34 (>60 ml/min/1.73 sqM); Albumin 1.9 g/dL (3.5-5.0); Alkaline Phosphatase 64 U/L (38-126); Anion Gap 4 mmol/L; Blood Urea Nitrogen 19 mg/dL (7-17); Calcium 9.3 mg/dL (8.4-10.2); Carbon Dioxide 17 mmol/L (22-30); Chloride 115 mmol/L (98-107); Glucose 80 mg/dL (74-99); Non-African American GFR(CKD) 30 (>60 ml/min/1.73 sqM); Potassium 3.8 mmol/L (3.5-5.1); Sodium 136 mmol/L (137-145); Total Bilirubin 0.2 mg/dL (0.2-1.3); Total Protein 3.8 g/dL (6.3-8.2)
--- NOTE | 2023-11-19 14:10 | P.PN ---
Subjective Progress Note Date: 11/19/23 Patient is a 88-year-old female with past medical history of hypertension, hyperlipidemia, atrial fibrillation on anticoagulation with Eliquis, osteoarthritis, CKD and multiple myeloma recently diagnosed in April 2023 presents to ER with complaints of due to complaints of bloody bowel movement from rehab. senior care staff found blood in her brief. Patient was at [facility] recently underwent surgery for fractured femur and then was discharged to [facility] but was sent back for urinary tract infection. She was treated for urinary tract infection for 3 days at [facility] and discharged to [facility] on the [place] yesterday. Patient had issues with constipation while she was at hospital and did not have any bowel meant for 10 days. She was given MiraLAX and multiple stool softeners and finally had bowel movement. Patient had to have manual disimpaction as per daughter. She was called this morning with the patient had a bloody bowel movement and was sent to ER. Patient is also having abdominal pain mainly in the left lower quadrant. Denies any nausea or vomiting. No fever no chills. No cough or sputum production. No chest pain or shortness of breath. Laboratory data showed WBC 12.0 hemoglobin 8.6 and platelets 293 Sodium 134 potassium 3.2 chloride 104 bicarb is 23 BUN 32 and creatinine 1.76 and blood sugar 92 and calcium 10.8 Liver enzymes are not elevated albumin 2.[address] of the abdomen pelvis showed colonic diverticulosis greatest distally without convincing CT evidence for acute diverticulitis. No bowel obstruction. Postsurgical changes to the left femur seen. Some erosive changes at the level of the ischial tuberosity with abnormal heterogenous thickening could reflect age-indeterminate infectious process or osteomyelitis in the appropriate clinical setting correlate clinically. 11/16/2023 Patient is currently lying in the bed. On room air. Still complains of abdominal pain and hip pain. No complaints of nausea or episodes of vomiting. Still having loose bowel movements. Laboratory showed WBC 8.3 hemoglobin dropped to 6.2. Patient is being transfused with 1 unit of PRBC Platelets 213, sodium 134 potassium 3.4 chloride 110 bicarb is 22 BUN 27 creatinine 1.69. Stool for C. difficile is negative. Patient is being continued on antibiotics Levaquin and Lasix. Also on IV hydration with normal saline at 75 cc/h. GI and hematology is on board. 11/17/2023 Patient is currently resting in the bed. Awake alert and oriented. She is still having loose stools sometimes maroon-colored. No episodes of vomiting. No complaints of nausea. Still complains of abdominal pain mainly left lower quadrant. Hemoglobin stable today. Laboratory data showed WBC 10.4 hemoglobin 7.3 and platelets 294 BUN 22 and creatinine 1.63. GI and hematology on board. 11/17. Patient seen and examined. Patient has been refusing to get out of bed or to participate in therapy. Discussed with patient detail need for her to be willing to do therapy. Diet advanced to regular 11/18. Patient seen and examined. Blood work done this morning showed WBC 9, hemoglobin 7, platelet count 246 sodium 138, potassium 3.8, BUN 19, creatinine 1.58 denies any diarrhea. No fevers overnight REVIEW OF SYSTEMS: CONSTITUTIONAL: No fever, no malaise,. CARDIOVASCULAR: No chest pain, no palpitations, no syncope. PULMONARY: No shortness of breath, no cough, GASTROINTESTINAL: No diarrhea, no nausea, no vomiting, no abdominal pain. NEUROLOGICAL: No headaches, no weakness, PHYSICAL EXAMINATION: GENERAL: The patient is alert and oriented x3, not in any acute distress. HEENT: Pupils are round and equally reacting to light. EOMI. No scleral icterus. No conjunctival pallor. Normocephalic, atraumatic. No pharyngeal erythema. No thyromegaly. CARDIOVASCULAR: S1 and S2 present. No murmurs, rubs, or gallops. PULMONARY: Chest is clear to auscultation, no wheezing or crackles. ABDOMEN: Soft, nontender, nondistended, normoactive bowel sounds. No palpable organomegaly. MUSCULOSKELETAL: No joint swelling or deformity. EXTREMITIES: No cyanosis, clubbing, or pedal edema. NEUROLOGICAL: Gross neurological examination did not reveal any focal deficits. SKIN: No rashes. Assessment and plan Abdominal pain with possible infectious colitis. Patient was noted to have blood in her brief. CT showed evidence of diverticulosis without diverticuli tis. Acute blood loss anemia with maroon-colored stools. Likely GI bleed. Patient is transfused with 1 units of PRBC on 11/16/2023 Recent admission at [facility] due to left femur fracture status postsurgical repair Recently treated urinary tract infection and severe constipation requiring m anual disimpaction at [facility]. Multiple myeloma diagnosed in April 2023 Paroxysmal atrial fibrillation on anticoagulation with Eliquis Hypertension Hyperlipidemia Osteoarthritis Chronic kidney disease stage III Hypokalemia replace it. Mild to moderate protein calorie malnutrition DVT prophylaxis with SCDs. Plan: Monitor vital signs Monitor CBC Monitor CMP DC fluids Continue Levaquin and Flagyl as per GI recommendations. Continue with pain management and bowel regimen. Eliquis is on hold currently. Hematology oncology on board, recommend outpatient follow-up at which time they will discuss treatment options for plasma cell multiple myeloma ID consulted Labs and medication were reviewed.. Continue same treatment. Continue with symptomatic treatment. Resume home medication. Monitor labs and vitals. DVT and GI prophylaxis. Further recommendations as per clinical course of the patient Dictation was produced using [employer] dictation software. please excuse any grammatical, word or spelling errors. Objective - Vital Signs Vital signs: Vital Signs Temp 98.1 F 11/19/23 08:08 Pulse 54 L 11/19/23 08:13 Resp 16 11/19/23 08:13 BP 150/51 11/19/23 08:08 Pulse Ox 99 11/19/23 08:08 FiO2 Intake & Output 11/18/23 11/19/23 11/19/23 18:59 06:59 18:59 Other: Voiding Method Diaper Diaper Diaper # Bowel Movements 1 - Labs CBC & Chem 7: 11/19/23 07:24 11/19/23 07:24 Labs: Abnormal Lab Results - Last 24 Hours (Table) 11/18/23 11/18/23 11/19/23 Range/Units 10:38 10:38 07:24 RBC 2.58 L 2.36 L (3.80-5.40) m/uL Hgb 7.5 L 7.0 L (11.4-16.0) gm/dL Hct 24.8 L 22.3 L (34.0-46.0) % MCHC 30.2 L (31.0-37.0) g/dL Sodium (137-145) mmol/L Potassium 3.4 L (3.5-5.1) mmol/L Chloride 113 H (98-107) mmol/L Carbon Dioxide 20 L (22-30) mmol/L BUN 21 H (7-17) mg/dL Creatinine 1.49 H (0.52-1.04) mg/dL Total Protein (6.3-8.2) g/dL Albumin (3.5-5.0) g/dL 11/19/23 Range/Units 07:24 RBC (3.80-5.40) m/uL Hgb (11.4-16.0) gm/dL Hct (34.0-46.0) % MCHC (31.0-37.0) g/dL Sodium 136 L (137-145) mmol/L Potassium (3.5-5.1) mmol/L Chloride 115 H (98-107) mmol/L Carbon Dioxide 17 L (22-30) mmol/L BUN 19 H (7-17) mg/dL Creatinine 1.58 H (0.52-1.04) mg/dL Total Protein 3.8 L (6.3-8.2) g/dL Albumin 1.9 L (3.5-5.0) g/dL
--- NOTE | 2023-11-19 17:33 | P.CONS ---
History of Present Illness - Reason for Consult Consult date: 11/19/23 Colitis, sepsis Requesting physician: Ata Fernández - Chief Complaint Bleeding per rectum x few days ago - History of Present Illness Patient is a 88-year-old female with a past medical history significant for Atrial Fibrillation, Coronary Artery Disease (CAD), Cancer, Hyperlipidemia, Hypertension, Osteoarthritis (OA), Renal Disease, patient has been brought to the hospital about 5 days ago for evaluation of rectal bleeding and this patient apparently symptoms started the day of presentation to the hospital patient recently did have a left hip surgery done at the [facility] and subsequently readmitted because of UTI and has been exposed to antibiotics afterwards the patient was stabilized and discharged to the local detention for [place] the patient had been sent to the [facility] on because of bleeding per rectum patient complaining of loose stool diarrhea associated with it next with the blood and did have somewhat lower abdominal pain patient denies having any nausea or any vomiting no chest pain shortness of breath or cough patient did have CT abdominal pelvis findings of diverticulosis without any diverticulitis patient did have a mild leukocytosis on admission with a white count of 12,000 and the patient was eval by GI services patient did have a stool for CT which was negative patient has been started on Levaquin and Flagyl infec tious disease was consulted today for further management of antibiotic therapy for the colitis. On today's visit patient denies having any fever or any chills, the patient is breathing comfortably on room air without need for supplemental oxygen denies any chest pain or shortness with occasional cough mention improvement in her abdominal pain as well as diarrhea and denies any further bleeding per rectum Review of Systems Positive point and negatives has been mentioned in the HPI, complete review of systems was performed and all other systems are negative Past Medical History Past Medical History: Atrial Fibrillation, Coronary Artery Disease (CAD), Cancer, Hyperlipidemia, Hypertension, Osteoarthritis (OA), Renal Disease Additional Past Medical History / Comment(s): multiple myeloma, chronic back pain History of Any Multi-Drug Resistant Organisms: None Reported Past Surgical History: Orthopedic Surgery Past Psychological History: No Psychological Hx Reported Smoking Status: Never smoker Past Alcohol Use History: None Reported Past Drug Use History: None Reported - Past Family History Mother Family Medical History: Cancer, Hypertension Father Family Medical History: Hypertension Brother(s) Family Medical History: Cancer, Diabetes Mellitus, Liver Disease Medications and Allergies Home Medications Medication Instructions Recorded Confirmed Type Acetaminophen Tab [Tylenol] 500 mg PO Q6H PRN 11/15/23 11/15/23 History Apixaban [Eliquis] 2.5 mg PO BID@0900,1700 11/15/23 11/15/23 History Cholecalciferol [Vitamin D3 (25 25 mcg PO DAILY 11/15/23 11/15/23 History Mcg = 1000 Iu)] Diclofenac Sodium Gel [Voltaren 1% 4 gm TOPICAL Q6H PRN 11/15/23 11/15/23 History Gel] Ezetimibe [Zetia] 10 mg PO HS 11/15/23 11/15/23 History Furosemide [Lasix] 40 mg PO DAILY 11/15/23 11/15/23 History Lidocaine 2% Gel 1 applic TOPICAL Q6H PRN 11/15/23 11/15/23 History [place]-3/Dha/Epa/Fish Oil [Fish Oil 1 cap PO DAILY 11/15/23 11/15/23 History 1,000 mg Softgel] cloNIDine 0.1 MG/24HR PATCH 1 patch TRANSDERM FR 11/15/23 11/15/23 History [Catapres-TTS] HYDROcodone/APAP 10-325MG [[place] 1 tab PO Q8H PRN #9 tab 11/20/23 Rx 10-325] Levofloxacin [Levaquin] 250 mg PO Q24H #7 tab 11/20/23 Rx Tamsulosin [Flomax] 0.4 mg PO PC-SUPPER #30 cap 11/20/23 Rx hydrALAZINE HCL [Apresoline] 25 mg PO TID #21 tab 11/20/23 Rx metroNIDAZOLE [Flagyl] 500 mg PO TID 7 Days #21 tab 11/20/23 Rx Allergies Allergy/AdvReac Type Severity Reaction Status Date / Time doxazosin Allergy Unknown Verified 11/15/23 08:59 Penicillins Allergy Unknown Verified 11/15/23 08:59 Childhood Physical Exam Vitals: Vital Signs Temp Pulse Pulse Resp BP Pulse Ox 11/19/23 13:29 56 L 16 11/19/23 11:47 56 L 16 110/58 98 11/19/23 08:13 54 L 16 11/19/23 08:08 98.1 F 54 L 16 150/51 99 11/19/23 02:00 58 L 16 11/19/23 01:22 58 L 16 147/57 97 11/18/23 20:20 97.6 F 57 L 16 153/61 95 11/18/23 20:00 57 L 16 11/18/23 15:37 60 16 139/62 96 Intake and Output 11/18/23 11/19/23 11/19/23 22:59 06:59 14:59 Intake Total 222 Balance 222 Intake: Oral 222 Other: Voiding Method Diaper Diaper Diaper # Bowel Movements 1 GENERAL DESCRIPTION: Elderly female lying in bed, no distress. No tachypnea or accessory muscle of respiration use. HEENT: Shows Pallor , no scleral icterus. Oral mucous membrane is dry. NECK: Trachea central, no thyromegaly. LUNGS: Unlabored breathing. Clear to auscultation anteriorly. No wheeze or crackle. HEART: S1, S2, regular rate and rhythm. No loud murmur ABDOMEN: Soft, no tenderness , guarding or rigidity EXTREMITIES: No edema of feet. SKIN: No rash, no masses palpable. NEUROLOGICAL: The patient is awake, alert, oriented x3, mood and affect normal. Results CBC & Chem 7: 11/20/23 09:52 11/20/23 09:52 Labs: Abnormal Lab Results - Last 24 Hours (Table) 11/19/23 11/19/23 Range/Units 07:24 07:24 RBC 2.36 L (3.80-5.40) m/uL Hgb 7.0 L (11.4-16.0) gm/dL Hct 22.3 L (34.0-46.0) % Sodium 136 L (137-145) mmol/L Chloride 115 H (98-107) mmol/L Carbon Dioxide 17 L (22-30) mmol/L BUN 19 H (7-17) mg/dL Creatinine 1.58 H (0.52-1.04) mg/dL Total Protein 3.8 L (6.3-8.2) g/dL Albumin 1.9 L (3.5-5.0) g/dL Assessment and Plan (1) Diarrhea Status: Acute Code(s): R19.7 - DIARRHEA, UNSPECIFIED SNOMED Code(s): 05208573 (2) Leukocytosis Status: Acute Code(s): D72.829 - ELEVATED WHITE BLOOD CELL COUNT, UNSPECIFIED SNOMED Code(s): 880718244 Plan: 1patient with admission to the hospital with bleeding per rectum also have diarrhea at that point this patient has been recently exposed to antibiotic however stool for C. difficile was negative CT abdominal pelvis did shows diverticulosis but no diverticulitis patient was eval by GI and was started on Levaquin and Flagyl concerning for possible infectious colitis and no stool cultures were done. 2keeping in mind improvement in her symptoms with the Levaquin and Flagyl we will continue patient on Levaquin and Flagyl however can be switched to p.o. We will follow on clinical condition and cultures to further adjust medication if needed Thank you for this consultation we will follow the patient along with you Dictation was produced using [employer] dictation software. please excuse any grammatical, word or spelling errors. Time with Patient: Greater than 30
[2023-11-19] MEDS: metroNIDAZOLE 500 MG TAB PO SCH (23:25)
[2023-11-20] MEDS: LEVOFLOXACIN 250 MG TAB PO SCH (09:01)
[2023-11-20 10:46] LABS: ALT 8 U/L (4-34); AST 21 U/L (14-36); African American GFR (CKD) 35 (>60 ml/min/1.73 sqM); Alkaline Phosphatase 63 U/L (38-126); Anion Gap 5 mmol/L; Blood Urea Nitrogen 18 mg/dL (7-17); Calcium 9.4 mg/dL (8.4-10.2); Carbon Dioxide 18 mmol/L (22-30); Chloride 113 mmol/L (98-107); Glucose 95 mg/dL (74-99); Non-African American GFR(CKD) 30 (>60 ml/min/1.73 sqM); Potassium 3.7 mmol/L (3.5-5.1); Sodium 136 mmol/L (137-145); Total Bilirubin 0.2 mg/dL (0.2-1.3)
[2023-11-20 10:57] VITALS: BP 135/62; PULSE 64; TEMP 97.6
[2023-11-20 10:59] LABS: Basophils % (A) 0 %; Eosinophils # (A) 0.1 k/uL (0-0.7); Eosinophils % (A) 1 %; HGB 7.8 gm/dL (11.4-16.0); Hypochromasia Moderate; Lymphocytes # (A) 1.4 k/uL (1.0-4.8); Lymphocytes % (A) 15 %; MCH 30.2 pg (25.0-35.0); MCHC 32.3 g/dL (31.0-37.0); MCV 93.7 fL (80.0-100.0); Mean Platelet Volume 8.5; Monocytes # (A) 0.4 k/uL (0-1.0); Monocytes % (A) 5 %; Neutrophils # (A) 7.4 k/uL (1.3-7.7); Neutrophils % (A) 79 %; Platelet Count 227 k/uL (150-450); RBC 2.56 m/uL (3.80-5.40); RDW 15.5 % (11.5-15.5); WBC 9.4 k/uL (3.8-10.6)
[2023-11-20] MEDS ORDERED: TAMSULOSIN 0.4 MG CAP.ER.24H PO SCH (12:00)
--- NOTE | 2023-11-20 13:18 | P.DS ---
Providers Date of admission: 11/15/23 06:44 Expected date of discharge: 11/20/23 Attending physician: Charles Johnson Consults: 11/15/23 06:44 Consult Physician Routine Consulting Provider: Alise Nunez Consult Reason/Comments: GI bleeding Do you want consulting provider notified?: Yes, Notify in am 11/16/23 08:31 Consult Physician Routine Consulting Provider: Jose Faulkner Consult Reason/Comments: Multiple myeloma, anemia Do you want consulting provider notified?: Yes 11/19/23 10:02 Consult Physician Routine Consulting Provider: Maria Antonia Raymond Consult Reason/Comments: Colitis, sepsis Do you want consulting provider notified?: Yes Primary care physician: Samuel Charles [facility] Course: Discharge diagnoses; Abdominal pain with possible infectious colitis. Patient was noted to have blood in her brief. CT showed evidence of diverticulosis without diverticulitis. Acute blood loss anemia with maroon-colored stools. Likely GI bleed. Patient is transfused with 1 units of PRBC on 11/16/2023 Recent admission at [facility] due to left femur fracture status postsurgical repair Recently treated urinary tract infection and severe constipation requiring manual disimpaction at [facility]. Multiple myeloma diagnosed in April 2023 Paroxysmal atrial fibrillation on anticoagulation with Eliquis Hypertension Hyperlipidemia Osteoarthritis Chronic kidney disease stage III Hypokalemia replace it. Mild to moderate protein calorie malnutrition Hospital course; Patient is a 88-year-old female with past medical history of hypertension, hyperlipidemia, atrial fibrillation on anticoagulation with Eliquis, osteoarthritis, CKD and multiple myeloma recently diagnosed in April 2023 presents to ER with complaints of due to complaints of bloody bowel movement from rehab. care home staff found blood in her brief. Patient was at [facility] recently underwent surgery for fractured femur and then was discharged to [facility] but was sent back for urinary tract infection. She was treated for urinary tract infection for 3 days at [facility] and discharged to [facility] the [place] yesterday. Patient had issues with constipation while she was at hospital and did not have any bowel meant for 10 days. She was given MiraLAX and multiple stool softeners and finally had bowel movement. Patient had to have manual disimpaction as per daughter. She was called this morning with the patient had a bloody bowel movement and was sent to ER. Patient is also having abdominal pain mainly in the left lower quadrant. Denies any nausea or vomiting. No fever no chills. No cough or sputum production. No chest pain or shortness of breath. Laboratory data showed WBC 12.0 hemoglobin 8.6 and platelets 293 Sodium 134 potassium 3.2 chloride 104 bicarb is 23 BUN 32 and creatinine 1.76 and blood sugar 92 and calcium 10.8 Liver enzymes are not elevated albumin 2.[address] of the abdomen pelvis showed colonic diverticulosis greatest distally without convincing CT evidence for acute diverticulitis. No bowel obstruction. Postsurgical changes to the left femur seen. Some erosive changes at the level of the ischial tuberosity with abnormal heterogenous thickening could reflect age-indeterminate infectious process or osteomyelitis in the appropriate clinical setting correlate clinically. 11/16/2023 Patient is currently lying in the bed. On room air. Still complains of abdominal pain and hip pain. No complaints of nausea or episodes of vomiting. Still having loose bowel movements. Laboratory showed WBC 8.3 hemoglobin dropped to 6.2. Patient is being transfused with 1 unit of PRBC Platelets 213, sodium 134 potassium 3.4 chloride 110 bicarb is 22 BUN 27 creatinine 1.69. Stool for C. difficile is negative. Patient is being continued on antibiotics Levaquin and Lasix. Also on IV hydration with normal saline at 75 cc/h. GI and hematology is on board. 11/17/2023 Patient is currently resting in the bed. Awake alert and oriented. She is still having loose stools sometimes maroon-colored. No episodes of vomiting. No complaints of nausea. Still complains of abdominal pain mainly left lower quadrant. Hemoglobin stable today. Laboratory data showed WBC 10.4 hemoglobin 7.3 and platelets 294 BUN 22 and creatinine 1.63. GI and hematology on board. 11/17. Patient seen and examined. Patient has been refusing to get out of bed or to participate in therapy. Discussed with patient detail need for her to be willing to do therapy. Diet advanced to regular. Hematology oncology on board, recommend outpatient follow-up at which time they will discuss treatment options for plasma cell multiple myeloma 11/18. Patient seen and examined. Blood work done this morning showed WBC 9, hemoglobin 7, platelet count 246 sodium 138, potassium 3.8, BUN 19, creatinine 1.58 denies any diarrhea. No fevers overnight 3/25. Patient seen and examined. ID recommended discharge patient on oral Levaquin and Flagyl for 7 more days.. Being discharged to rehab in stable condition PHYSICAL EXAMINATION: GENERAL: The patient is alert and oriented x3, not in any acute distress. Well developed, well nourished. HEENT: Pupils are round and equally reacting to light. EOMI. No scleral icterus. No conjunctival pallor. Normocephalic, atraumatic. No pharyngeal erythema. No thyromegaly. CARDIOVASCULAR: S1 and S2 present. No murmurs, rubs, or gallops. PULMONARY: Chest is clear to auscultation, no wheezing or crackles. ABDOMEN: Soft, nontender, nondistended, normoactive bowel sounds. No palpable organomegaly. MUSCULOSKELETAL: No joint swelling or deformity. EXTREMITIES: No cyanosis, clubbing, or pedal edema. NEUROLOGICAL: Gross neurological examination did not reveal any focal deficits. SKIN: No rashes. Dictation was produced using [employer] dictation software. please excuse any grammatical, word or spelling errors. Patient Condition at Discharge: Stable Plan - Discharge Summary Discharge Rx Participant: No New Discharge Prescriptions: New hydrALAZINE HCL [Apresoline] 25 mg PO TID #21 tab metroNIDAZOLE [Flagyl] 500 mg PO TID 7 Days #21 tab Levofloxacin [Levaquin] 250 mg PO Q24H #7 tab Tamsulosin [Flomax] 0.4 mg PO PC-SUPPER #30 cap Continue Lidocaine 2% Gel 1 applic TOPICAL Q6H PRN PRN Reason: Pain Diclofenac Sodium Gel [Voltaren 1% Gel] 4 gm TOPICAL Q6H PRN PRN Reason: Pain Acetaminophen Tab [Tylenol] 500 mg PO Q6H PRN PRN Reason: Pain Furosemide [Lasix] 40 mg PO DAILY Ezetimibe [Zetia] 10 mg PO HS [place]-3/Dha/Epa/Fish Oil [Fish Oil 1,000 mg Softgel] 1 cap PO DAILY Apixaban [Eliquis] 2.5 mg PO BID@0900,1700 cloNIDine 0.1 MG/24HR PATCH [Catapres-TTS] 1 patch TRANSDERM FR Cholecalciferol [Vitamin D3 (25 Mcg = 1000 Iu)] 25 mcg PO DAILY HYDROcodone/APAP 10-325MG [[place] 10-325] 1 tab PO Q8H PRN #9 tab PRN Reason: Pain Discontinued hydrALAZINE HCL [Apresoline] 25 mg PO BID Discharge Medication List Acetaminophen Tab [Tylenol] 500 mg PO Q6H PRN 11/15/23 [History] Apixaban [Eliquis] 2.5 mg PO BID@0900,1700 11/15/23 [History] Cholecalciferol [Vitamin D3 (25 Mcg = 1000 Iu)] 25 mcg PO DAILY 11/15/23 [History] Diclofenac Sodium Gel [Voltaren 1% Gel] 4 gm TOPICAL Q6H PRN 11/15/23 [History] Ezetimibe [Zetia] 10 mg PO HS 11/15/23 [History] Furosemide [Lasix] 40 mg PO DAILY 11/15/23 [History] Lidocaine 2% Gel 1 applic TOPICAL Q6H PRN 11/15/23 [History] [place]-3/Dha/Epa/Fish Oil [Fish Oil 1,000 mg Softgel] 1 cap PO DAILY 11/15/23 [History] cloNIDine 0.1 MG/24HR PATCH [Catapres-TTS] 1 patch TRANSDERM FR 11/15/23 [History] HYDROcodone/APAP 10-325MG [[place] 10-325] 1 tab PO Q8H PRN #9 tab 11/20/23 [Rx] Levofloxacin [Levaquin] 250 mg PO Q24H #7 tab 11/20/23 [Rx] Tamsulosin [Flomax] 0.4 mg PO PC-SUPPER #30 cap 11/20/23 [Rx] hydrALAZINE HCL [Apresoline] 25 mg PO TID #21 tab 11/20/23 [Rx] metroNIDAZOLE [Flagyl] 500 mg PO TID 7 Days #21 tab 11/20/23 [Rx] Follow up Appointment(s)/Referral(s): Samuel Charles MD [Primary Care Provider] - 1-2 days Marly Marino MD [STAFF PHYSICIAN] - 1 Week Alise Nunez MD [STAFF PHYSICIAN] - 1 Week Discharge Disposition: TRANSFER TO SNF/ECF
[2023-11-21 04:20] LABS: Methylmalonic Acid 0.22 umol/L (<0.40)
--- NOTE | 2023-11-21 14:12 | P.PN ---
Subjective Progress Note Date: 11/20/23 Principal diagnosis: Reason for follow-up is diarrhea possible colitis Patient is a 88-year-old female with a past medical history significant for Atrial Fibrillation, Coronary Artery Disease (CAD), Cancer, Hyperlipidemia, Hypertension, Osteoarthritis (OA), Renal Disease, patient has been brought to the hospital about 6 days ago for evaluation of rectal bleeding, the patient did have a mild elevated white count CT abdominal pelvis was negative for any diverticulitis patient was started on IV Levaquin and Flagyl by GI concerning for possible colitis infectious was consulted yesterday regarding antibiotic treatment. On today's visit that is 11/20/2023,the patient denies any fever or any chills, patient is breathing comfortably on room air, the patient denies chest pain shortness of breath and no significant cough, patient denies abdominal pain, no nausea vomiting or diarrhea. Patient white count is 9.4, creatinine is 1.56 Objective - Vital Signs Vital signs: Vital Signs Temp 97.6 F 11/20/23 08:00 Pulse 64 11/20/23 08:00 Resp 16 11/20/23 08:00 BP 135/62 11/20/23 08:00 Pulse Ox 98 11/20/23 08:00 FiO2 Intake & Output 11/19/23 11/20/23 11/20/23 18:59 06:59 18:59 Intake Total 222 Output Total 750 600 Balance -528 -600 Intake: Oral 222 Output: Urine 750 600 Straight 600 Other: Voiding Method Diaper Diaper Diaper - Exam GENERAL DESCRIPTION: An elderly female lying in bed in no distress RESPIRATORY SYSTEM: Unlabored breathing , decreased breath sounds at bases HEART: S1 S2 regular rate and rhythm , ABDOMEN: Soft , no tenderness EXTREMITIES: No edema feet - Labs CBC & Chem 7: 11/20/23 09:52 11/20/23 09:52 Labs: Abnormal Lab Results - Last 24 Hours (Table) 11/20/23 11/20/23 Range/Units 09:52 09:52 RBC 2.56 L (3.80-5.40) m/uL Hgb 7.8 L (11.4-16.0) gm/dL Hct 24.0 L (34.0-46.0) % Sodium 136 L (137-145) mmol/L Chloride 113 H (98-107) mmol/L Carbon Dioxide 18 L (22-30) mmol/L BUN 18 H (7-17) mg/dL Creatinine 1.56 H (0.52-1.04) mg/dL Total Protein 4.0 L (6.3-8.2) g/dL Albumin 2.0 L (3.5-5.0) g/dL Assessment and Plan (1) Leukocytosis Status: Acute Code(s): D72.829 - ELEVATED WHITE BLOOD CELL COUNT, UNSPECIFIED SNOMED Code(s): 892709662 (2) Diarrhea Status: Acute Code(s): R19.7 - DIARRHEA, UNSPECIFIED SNOMED Code(s): 75915486 Plan: 1patient with admission to the hospital with bleeding per rectum also have diarrhea at that point this patient has been recently exposed to antibiotic however stool for C. difficile was negative CT abdominal pelvis did shows diverticulosis but no diverticulitis patient was eval by GI and was started on Levaquin and Flagyl concerning for possible infectious colitis and no stool cultures were done. 2keeping in mind improvement in her symptoms with the Levaquin and Flagyl, plan is to continue with the oral Levaquin and Flagyl for 5 days on discharge this was discussed with the admitting team working on discharge Dictation was produced using [employer] dictation software. please excuse any grammatical, word or spelling errors. Time with Patient: Less than 30
--- NOTE | 2023-11-30 10:17 | CDI ---
Documentation Clarification Form Date: 11/30/2023 09:57:02 AM From: Halle Rojas Admit Date: 11/15/2023 06:44:00 AM Patient Name: Dafne Onofre Visit Number: [id number] Discharge Date: 11/20/2023 02:11:00 PM ATTENTION: The Clinical Documentation Specialists (CDI) and [facility] Coding Staff appreciate your assistance in clarifying documentation. Please respond to the clarification below the line at the bottom and electronically sign. The CDI & [facility] Coding staff will review the response and follow-up if needed. Please note: Queries are made part of the Legal Health Record. If you have any questions, please contact the author of this message via ITS. Dr. Ata Fernández Mild to Moderate Malnutrition is documented in the History and Physical 11/15/23, progress notes 11/16/23 11/19/23, and Discharge Summary 11/20/23. Additional clarification regarding the severity of malnutrition is requested. History/Risk Factors: Patient is an 88 year old female with a past history of hypertension, hyperlipidemia, atrial fibrillation on eliquis, osteoarthritis, CKD, and multiple myeloma. Clinical Indicators: patient has constipation, and was sent to the ER due to blood found in her brief. She was diagnosed with infectious colitis, acute blood loss anemia, and mild to moderate protein calorie malnutrition. Per consult note she has generalized weakness. Current BMI: 24 RD Consult Assessment: patient has a stage 2 pressure ulcer to coccyx. Patients nutrition intake is poor. Appears well nourished. Need to increase metabolic demand to promote wound healing. Treatment: Micah BID, dietary consult Supplements: Patient needs increased nutrients, protein, zinc, and vit C Please clarify the severity of malnutrition, if known: [ ] Mild Protein-Calorie Malnutrition [ x ] Moderate Protein-Calorie Malnutrition [ ] Unable to Determineul MTDD
== END 2023-11-20 14:11 | DRG 392 ==
LOC: EC 01:31 → 3SCARD 06:44
PROVIDERS: ADMIT Hospitalist; ATTEND Hospitalist
PROC: 30233N1 Transfusion of Nonautologous Red Blood Cells into Peripheral Vein, Percutaneous Approach (ICD-10-PCS; principal; 2023-11-16)
DX: A09 Infectious gastroenteritis and colitis, unspecified (principal); C90.00 Multiple myeloma not having achieved remission; E44.0 Moderate protein-calorie malnutrition; D62 Acute posthemorrhagic anemia; K57.30 Diverticulosis of large intestine without perforation or abscess without bleeding; L89.92 Pressure ulcer of unspecified site, stage 2; I48.0 Paroxysmal atrial fibrillation; D63.0 Anemia in neoplastic disease; M89.8X9 Other specified disorders of bone, unspecified site; I12.9 Hypertensive chronic kidney disease with stage 1 through stage 4 chronic kidney disease, or unspecified chronic kidney disease; N18.30 Chronic kidney disease, stage 3 unspecified; E78.5 Hyperlipidemia, unspecified; M19.90 Unspecified osteoarthritis, unspecified site; K59.00 Constipation, unspecified; S72.92XD Unspecified fracture of left femur, subsequent encounter for closed fracture with routine healing; E87.6 Hypokalemia; Z68.24 Body mass index [BMI] 24.0-24.9, adult; G89.29 Other chronic pain; M54.9 Dorsalgia, unspecified; I25.10 Atherosclerotic heart disease of native coronary artery without angina pectoris; Z79.899 Other long term (current) drug therapy; Z87.440 Personal history of urinary (tract) infections; Z79.01 Long term (current) use of anticoagulants; Z88.0 Allergy status to penicillin; Z88.1 Allergy status to other antibiotic agents
CPT/HCPCS: 36415; 74176; 80048; 80053; 82272; 82525; 82607; 82728; 82746; 83540; 83550; 83921; 85025; 85027; 85045; 85610; 85730; 86850; 86900; 86901; 86920; 87324; 96361; 96365; 96366; 96367; 96375; 99285